=== PATIENT | female | born 1945 | race Caucasian/White ===

== ENCOUNTER 2016-07-06 12:05 | Observation (INO) ==
--- NOTE | 2016-07-06 12:07 | Emergency Department Note ---
Disposition Clinical Impression: Altered mental status, Anemia, Influenza A, Ataxia, Hypoxemia, Thrombocytopenia , Frail elderly Disposition: Admitted As Inpatient Referrals: NO,PCP [Non-Partnered Physician] - Forms: ED Satisfaction Letter General Adult HPI - General Chief complaint: ED Altered Mental Status Stated complaint: cough, AMS Time Seen by Provider: 07/06/16 12:07 - History of Present Illness HPI Narrative: 71-year-old female reports to the emergency department complaining of confusion. She was brought in by her relatives who live with her. This all started last evening she was becoming increasingly confused and this persisted throughout today. There is no history of fall or injury. The patient denies any chest pain she has been somewhat short of breath and had a cough. The patient has no history of COPD asthma CHF CAD DVT or PE. She does not usually require oxygen. There is no history of abdominal pain vomiting or diarrhea. No convulsions or difficulty moving the arms or legs independently. There is no history of coughing up blood. No history of leg swelling or pain. There is no history of dysarthria. The family reports the patient was asking inappropriate questions and was not oriented to place. She has had a cough for the last few days. The patient also complains of a headache, there is no history of neck stiffness or rash. - Related Data Home Medications Medication Instructions Recorded Confirmed Alprazolam [Xanax 0.5 MG Tablet] 0.5 mg PO BID 11/06/15 07/06/16 Amlodipine [Norvasc] 5 mg PO DAILY 11/06/15 07/06/16 Atorvastatin Calcium [Lipitor] 20 mg PO QPM 11/06/15 07/06/16 Diclofenac Potassium 50 mg PO BID 11/06/15 07/06/16 Donepezil [Aricept] 10 mg PO HS 11/06/15 07/06/16 Gabapentin [Neurontin] 300 mg PO TID 11/06/15 07/06/16 Levothyroxine [Synthroid] 25 mcg PO QAM 11/06/15 07/06/16 Metoprolol [Lopressor] 50 mg PO BID 11/06/15 07/06/16 Nortriptyline [Pamelor] 10 mg PO HS 11/06/15 07/06/16 Pantoprazole Sodium [Protonix] 40 mg PO DAILY 06/13/16 02/11/17 Sertraline [Zoloft] 150 mg PO DAILY 11/06/15 07/06/16 Oxycodone HCl [Oxycontin] 20 mg PO QID PRN 07/06/16 07/06/16 Allergies Allergy/AdvReac Type Severity Reaction Status Date / Time citalopram [From Celexa] Allergy Hallucinati Verified 03/05/16 10:00 ng Hydromorphone [From Dilaudid] Allergy Hallucinati Verified 03/05/16 10:00 ng Oxycodone [From OxyContin] Allergy Hallucinati Verified 03/05/16 10:00 ng Penicillins Allergy Hives Verified 03/05/16 10:00 All systems ED: reviewed and negative except as stated. (The patient gives a reasonable review of systems, the family augments the ROS and history.) Limitations: ROS unobtainable due to patients medical condition Past Medical History - Past Medical History Medical history: Reports: arthritis, hyperlipidemia, hypertension, thyroid disease, other Surgical history: Reports: , hip replacement, hysterectomy, knee replacement, orthopedic, other, other Psychiatric history: Reports: anxiety, depression - Social History Smoking Status: Never smoker Smokeless Tobacco Status: No Alcohol use: Reports: none Drug use: Reports: none Physical Exam - General Limitations: age General appearance: alert, in no apparent distress - Head Head exam: atraumatic, normocephalic, normal inspection - Eye Eye exam: Present: normal appearance, PERRL, EOMI. Absent: scleral icterus, conjunctival injection, miosis, mydriasis - ENT ENT exam: normal exam, normal oropharynx, mucous membranes moist, TM's normal bilaterally, normal external ear exam - Neck Neck exam: Present: normal inspection, full ROM, trachea midline. Absent: meningismus - Chest Chest inspection: Present: symmetric chest wall rise. Absent: tenderness - Respiratory Respiratory exam: Present: prolonged expiratory phase. Absent: respiratory distress, accessory muscle use - Cardiovascular Cardiovascular exam: Present: normal rhythm, tachycardia - Abdominal Exam Abdominal exam: Present: soft, Non-Tender, normal bowel sounds. Absent: tenderness, distention, guarding, rebound, rigidity, pulsatile mass - Extremities Exam Extremities exam: Present: normal inspection, full ROM, normal capillary refill. Absent: tenderness, pedal edema, joint swelling, calf tenderness - Expanded Lower Extremity Exam Neurovascular/Tendon exam: Absent: motor deficit, sensory deficit, tendon deficit, extremity cold to touch - Back Exam Back exam: Present: normal inspection, full ROM. Absent: tenderness, CVA tenderness (R), CVA tenderness (L), vertebral tenderness - Neurological Exam Neurological exam: Present: alert, CN II-XII intact, other (The patient is generally alert and cooperative and answers questions properly and follows commands well. The family reports she was not oriented to place.). Absent: motor sensory deficit - Psychiatric Psychiatric exam: Present: normal affect, normal mood - Skin Skin exam: Present: warm, dry, intact, normal color. Absent: rash, erythema, pallor, mottled Course Vital Signs Temperature 100.1 F H 07/06/16 12:07 Pulse Rate 119 07/06/16 12:07 Respiratory Rate 18 07/06/16 12:07 Blood Pressure 129/92 07/06/16 12:07 O2 Sat by Pulse Oximetry 90 L 07/06/16 12:07 Temperature 100.1 F H 07/06/16 12:07 Pulse Rate 84 07/06/16 16:45 Respiratory Rate 18 07/06/16 16:45 Blood Pressure 105/65 07/06/16 16:45 O2 Sat by Pulse Oximetry 94 L 07/06/16 16:45 Oxygen Delivery Oxygen Delivery Nasal Cannula Medical Decision Making - [facility] Narrative Medical decision making narrative: Patient was monitored in the emergency department, her family reported she had been significantly confused. They state that she is so weak now that she cannot walk. The patient's testing reveals an element of anemia which is likely chronic, her influenza A test is positive. The patient was monitored in the emergency department and was utilizing oxygen with reasonable saturations. We removed her oxygen and her O2 sats went to 89%. The patient does not usually require oxygen. Based on the patient's elderly state, hypoxemia, influenza a positive status, ataxia, and reports of confusion, I thought it would be appropriate to observe the patient and the hospital. I discussed the case with the hospitalist on-call. - Lab Data Lab results reviewed: Yes I reviewed the patient's lab results. Result diagrams: 07/06/16 12:39 07/06/16 12:39 Lab Results 07/06/16 07/06/16 07/06/16 Range/Units 12:39 12:39 12:39 WBC 6.3 (4.3-11.1) K/mcL RBC 4.00 (3.82-4.97) M/mcL Hgb 10.8 L (11.5-15.4) g/dL Hct 34.2 L (35.3-44.9) % MCV 85.5 (83.0-100.0) fL MCH 27.0 L (28.0-33.3) pg MCHC 31.6 (31.6-35.5) g/dL RDW 14.7 H (11.5-14.5) % Plt Count 125 L (140-400) K/mcL MPV 10.2 (9.4-12.4) fL Immature Gran % 0.3 (0-4) % Seg Neutrophils % 75.7 % Lymphocytes % 15.0 % Monocytes % 7.8 % Eosinophils % 1.0 % Basophils % 0.2 % Neutrophils # 4.7 (1.6-8.9) K/mcL Lymphocytes # 0.9 (0.6-4.6) K/mcL Monocytes # 0.5 (0.0-1.3) K/mcL Eosinophils # 0.1 (0.0-0.6) K/mcL Basophils # 0.0 (0.0-0.2) K/mcL PT 11.9 (9.4-12.1) Seconds INR 1.1 APTT 31.4 (26.0-36.0) Seconds Sodium 139 (136-145) mEq/L Potassium 3.9 (3.5-4.5) mEq/L Chloride 105 (98-109) mEq/L Carbon Dioxide 25 (19-29) mEq/L BUN 12 (7-20) mg/dL Creatinine 0.77 (0.57-1.11) mg/dL Est GFR ( Amer) > 60 (> 60) Est GFR (Non-Af Amer) > 60 (> 60) BUN/Creatinine Ratio 16 (6-26) Glucose 114 H (70-99) mg/dL POC Glucose (58-89) Calculated Osmolality 289 (280-300) Lactic Acid (0.5-2.2) mmol/L Calcium 9.1 (8.6-10.8) mg/dL Total Bilirubin 0.4 (0.2-1.2) mg/dL Direct Bilirubin 0.2 (0.0-0.5) mg/dL Indirect Bilirubin 0.2 (0.0-1.2) mg/dL AST 20 (5-34) Units/L ALT 13 (0-55) Units/L Alkaline Phosphatase 61 (38-126) Units/L Ammonia (18-72) mcmol/L Troponin I (0-0.03) ng/mL C-Reactive Protein 32 H (Less than 5) mg/L Serum Total Protein 6.7 (6.0-8.3) g/dL Albumin 3.6 (3.5-5.0) g/dL Globulin 3.1 (2.4-3.5) g/dL Albumin/Globulin Ratio 1.2 (1.1-2.2) TSH 1.762 (0.350-4.840) mcIU/mL Urine Color (Yellow) Urine Clarity (Clear) Urine pH (5.0-8.0) pH Units Ur Specific Fults (1.010-1.025) Urine Protein (Neg-Trace) mg/dL Urine Glucose (UA) (Normal) mg/dL Urine Ketones (Negative) mg/dL Urine Blood (Negative) Urine Nitrite (Negative) Urine Bilirubin (Negative) Urine Urobilinogen (Normal) mg/dL Ur Leukocyte Esterase (Negative) Ur Culture Indicated? (NO) Salicylates < 5.0 L (15-30) mg/dL Urine Opiates Screen (Anzcsb=061) ng/mL Ur Barbiturates Screen (Vwrtwh=166) ng/mL Ur Phencyclidine Scrn (Cutoff=25) ng/mL Ur Amphetamines Screen (Vhqjhv=0224) ng/mL U Benzodiazepines Scrn (Habshh=523) ng/mL Urine Cocaine Screen (Cutoff= 300) ng/mL U Marijuana (THC) Screen (Cutoff = 50) ng/mL Ethyl Alcohol < 10 (0-10) mg/dL 07/06/16 07/06/16 07/06/16 Range/Units 12:39 12:39 12:39 WBC (4.3-11.1) K/mcL RBC (3.82-4.97) M/mcL Hgb (11.5-15.4) g/dL Hct (35.3-44.9) % MCV (83.0-100.0) fL MCH (28.0-33.3) pg MCHC (31.6-35.5) g/dL RDW (11.5-14.5) % Plt Count (140-400) K/mcL MPV (9.4-12.4) fL Immature Gran % (0-4) % Seg Neutrophils % % Lymphocytes % % Monocytes % % Eosinophils % % Basophils % % Neutrophils # (1.6-8.9) K/mcL Lymphocytes # (0.6-4.6) K/mcL Monocytes # (0.0-1.3) K/mcL Eosinophils # (0.0-0.6) K/mcL Basophils # (0.0-0.2) K/mcL PT (9.4-12.1) Seconds INR APTT (26.0-36.0) Seconds Sodium (136-145) mEq/L Potassium (3.5-4.5) mEq/L Chloride (98-109) mEq/L Carbon Dioxide (19-29) mEq/L BUN (7-20) mg/dL Creatinine (0.57-1.11) mg/dL Est GFR ( Amer) (> 60) Est GFR (Non-Af Amer) (> 60) BUN/Creatinine Ratio (6-26) Glucose (70-99) mg/dL POC Glucose (58-89) Calculated Osmolality (280-300) Lactic Acid 1.0 (0.5-2.2) mmol/L Calcium (8.6-10.8) mg/dL Total Bilirubin (0.2-1.2) mg/dL Direct Bilirubin (0.0-0.5) mg/dL Indirect Bilirubin (0.0-1.2) mg/dL AST (5-34) Units/L ALT (0-55) Units/L Alkaline Phosphatase (38-126) Units/L Ammonia 34 (18-72) mcmol/L Troponin I 0.00 (0-0.03) ng/mL C-Reactive Protein (Less than 5) mg/L Serum Total Protein (6.0-8.3) g/dL Albumin (3.5-5.0) g/dL Globulin (2.4-3.5) g/dL Albumin/Globulin Ratio (1.1-2.2) TSH (0.350-4.840) mcIU/mL Urine Color (Yellow) Urine Clarity (Clear) Urine pH (5.0-8.0) pH Units Ur Specific Fults (1.010-1.025) Urine Protein (Neg-Trace) mg/dL Urine Glucose (UA) (Normal) mg/dL Urine Ketones (Negative) mg/dL Urine Blood (Negative) Urine Nitrite (Negative) Urine Bilirubin (Negative) Urine Urobilinogen (Normal) mg/dL Ur Leukocyte Esterase (Negative) Ur Culture Indicated? (NO) Salicylates (15-30) mg/dL Urine Opiates Screen (Gtaxip=101) ng/mL Ur Barbiturates Screen (Azncrn=365) ng/mL Ur Phencyclidine Scrn (Cutoff=25) ng/mL Ur Amphetamines Screen (Xpfktk=1901) ng/mL U Benzodiazepines Scrn (Aapstn=071) ng/mL Urine Cocaine Screen (Cutoff= 300) ng/mL U Marijuana (THC) Screen (Cutoff = 50) ng/mL Ethyl Alcohol (0-10) mg/dL 07/06/16 07/06/16 07/06/16 Range/Units 13:10 13:10 13:16 WBC (4.3-11.1) K/mcL RBC (3.82-4.97) M/mcL Hgb (11.5-15.4) g/dL Hct (35.3-44.9) % MCV (83.0-100.0) fL MCH (28.0-33.3) pg MCHC (31.6-35.5) g/dL RDW (11.5-14.5) % Plt Count (140-400) K/mcL MPV (9.4-12.4) fL Immature Gran % (0-4) % Seg Neutrophils % % Lymphocytes % % Monocytes % % Eosinophils % % Basophils % % Neutrophils # (1.6-8.9) K/mcL Lymphocytes # (0.6-4.6) K/mcL Monocytes # (0.0-1.3) K/mcL Eosinophils # (0.0-0.6) K/mcL Basophils # (0.0-0.2) K/mcL PT (9.4-12.1) Seconds INR APTT (26.0-36.0) Seconds Sodium (136-145) mEq/L Potassium (3.5-4.5) mEq/L Chloride (98-109) mEq/L Carbon Dioxide (19-29) mEq/L BUN (7-20) mg/dL Creatinine (0.57-1.11) mg/dL Est GFR ( Amer) (> 60) Est GFR (Non-Af Amer) (> 60) BUN/Creatinine Ratio (6-26) Glucose (70-99) mg/dL POC Glucose 102 H (58-89) Calculated Osmolality (280-300) Lactic Acid (0.5-2.2) mmol/L Calcium (8.6-10.8) mg/dL Total Bilirubin (0.2-1.2) mg/dL Direct Bilirubin (0.0-0.5) mg/dL Indirect Bilirubin (0.0-1.2) mg/dL AST (5-34) Units/L ALT (0-55) Units/L Alkaline Phosphatase (38-126) Units/L Ammonia (18-72) mcmol/L Troponin I (0-0.03) ng/mL C-Reactive Protein (Less than 5) mg/L Serum Total Protein (6.0-8.3) g/dL Albumin (3.5-5.0) g/dL Globulin (2.4-3.5) g/dL Albumin/Globulin Ratio (1.1-2.2) TSH (0.350-4.840) mcIU/mL Urine Color Yellow (Yellow) Urine Clarity Clear (Clear) Urine pH 5.5 (5.0-8.0) pH Units Ur Specific Fults 1.019 (1.010-1.025) Urine Protein Negative (Neg-Trace) mg/dL Urine Glucose (UA) Normal (Normal) mg/dL Urine Ketones Negative (Negative) mg/dL Urine Blood Negative (Negative) Urine Nitrite Negative (Negative) Urine Bilirubin Negative (Negative) Urine Urobilinogen Normal (Normal) mg/dL Ur Leukocyte Esterase Negative (Negative) Ur Culture Indicated? NO (NO) Salicylates (15-30) mg/dL Urine Opiates Screen Positive H (Ofbsth=269) ng/mL Ur Barbiturates Screen Negative (Uhxfox=058) ng/mL Ur Phencyclidine Scrn Negative (Cutoff=25) ng/mL Ur Amphetamines Screen Negative (Qfhgex=4805) ng/mL U Benzodiazepines Scrn Positive H (Ujmqeb=164) ng/mL Urine Cocaine Screen Negative (Cutoff= 300) ng/mL U Marijuana (THC) Screen Negative (Cutoff = 50) ng/mL Ethyl Alcohol (0-10) mg/dL - Radiology Data Radiology results reviewed: Yes I reviewed the patient's radiology results.
[2016-07-06] MEDS ORDERED: 0.9 % Sodium Chloride 1,000 ML IVC ONE (12:09)
[2016-07-06] MEDS ORDERED: 0.9 % Sodium Chloride 1,000 ML IVC SCH (12:30)
[2016-07-06 12:51] LABS: Basophils % 0.2 %; Eosinophils # 0.1 K/mcL (0.0-0.6); Hematocrit 34.2 % (35.3-44.9); Hemoglobin 10.8 g/dL (11.5-15.4); Immature Granulocytes % 0.3 % (0-4); Lymphocytes # 0.9 K/mcL (0.6-4.6); Mean Corpuscular HGB Conc 31.6 g/dL (31.6-35.5); Mean Corpuscular Volume 85.5 fL (83.0-100.0); Mean Platelet Volume 10.2 fL (9.4-12.4); Monocytes # 0.5 K/mcL (0.0-1.3); Monocytes % 7.8 %; Neutrophils # 4.7 K/mcL (1.6-8.9); Platelet Count 125 K/mcL (140-400); Red Cell Distribution Width 14.7 % (11.5-14.5); Segmented Neutrophils % 75.7 %
[2016-07-06 12:56] LABS: INR 1.1; Prothrombin Time 11.9 Seconds (9.4-12.1)
[2016-07-06 12:59] LABS: Activated Partial Thrombo Time 31.4 Seconds (26.0-36.0)
[2016-07-06 13:10] LABS: Alanine Aminotransferase 13 Units/L (0-55); Albumin 3.6 g/dL (3.5-5.0); Albumin/Globulin Ratio 1.2 (1.1-2.2); Alkaline Phosphatase 61 Units/L (38-126); Aspartate Amino Transferase 20 Units/L (5-34); BUN/Creatinine Ratio 16 (6-26); Bilirubin,Direct 0.2 mg/dL (0.0-0.5); Bilirubin,Indirect 0.2 mg/dL (0.0-1.2); Bilirubin,Total 0.4 mg/dL (0.2-1.2); Blood Urea Nitrogen 12 mg/dL (7-20); Calcium 9.1 mg/dL (8.6-10.8); Carbon Dioxide 25 mEq/L (19-29); Chloride 105 mEq/L (98-109); Globulin 3.1 g/dL (2.4-3.5); Glucose 114 mg/dL (70-99); Osmolality,Calculated 289 (280-300); Potassium 3.9 mEq/L (3.5-4.5); Sodium 139 mEq/L (136-145); Total Protein 6.7 g/dL (6.0-8.3); eGFR For African Americans > 60 (> 60); eGFR For Non-African Americans > 60 (> 60)
[2016-07-06 13:11] LABS: Ethanol < 10 mg/dL (0-10); Salicylate < 5.0 mg/dL (15-30)
[2016-07-06 13:30] LABS: Thyroid Stimulating Hormone 1.762 mcIU/mL (0.350-4.840)
[2016-07-06 13:39] LABS: Bilirubin,Urine Negative (Negative); Blood,Urine Negative (Negative); Clarity,Urine Clear (Clear); Color,Urine Yellow (Yellow); Glucose,Urine (UA) Normal (Normal); Ketones,Urine Negative (Negative); Leukocyte Esterase,Urine Negative (Negative); Nitrite,Urine Negative (Negative); PH,Urine 5.5 pH Units (5.0-8.0); Protein,Urine Negative (Neg-Trace); Specific Gravity,Urine 1.019 (1.010-1.025); Urobilinogen,Urine Normal (Normal)
[2016-07-06] MEDS ORDERED: Ipratropium/Albuterol Neb 3 ML IH ONE (14:17)
[2016-07-06 15:29] LABS: Amphetamine Screen,Urine Negative ng/mL (Cutoff=1000); Barbiturate Screen,Urine Negative ng/mL (Cutoff=200); Benzodiazepines Screen,Urine Positive ng/mL (Cutoff=200); Cannabinoid Screen,Urine Negative ng/mL (Cutoff = 50); Cocaine Screen,Urine Negative ng/mL (Cutoff= 300); Opiate Screen,Urine Positive ng/mL (Cutoff=300); Phencyclidine Screen,Urine Negative ng/mL (Cutoff=25)
[2016-07-06 15:33] LABS: C-Reactive Protein 32 mg/L (Less than 5)
[2016-07-06] MEDS ORDERED: Acetaminophen 325 MG TABLET PO ONE (19:52)
[2016-07-06] MEDS ORDERED: Naloxone 0.4 MG/ML INJ IVP PRN (20:08)
[2016-07-06] MEDS ORDERED: Ondansetron 4 MG/2 ML VIAL IVP PRN (20:08)
--- NOTE | 2016-07-06 20:28 | Internal Med History&Physical ---
Date of Encounter: 07/06/16 Time of Encounter: 20:20 Assessment and Plan (1) Influenza A Current visit: Yes Status: Acute 1 patient has been experiencing cough weakness headaches and general malaise for 2 days pain family has noticed increased confusion, and odd behavior. She was brought to the ER was hypoxic on presentation. After workup it was found that she was positive for influenza A. We will continue with oxygen support maintain SPO2 greater than 92%-and attempt to wean oxygen to room air 2 we will continue with Tamiflu 3 albuterol treatments (2) Hypoxemia Current visit: Yes Status: Acute 1 patient was 89% on room air she does have some wheezing her x-ray was clear positive for influenza. We will continue with oxygen support as well as albuterol. We will maintain a strict 2 g of 90% and wean oxygen to room air (3) Altered mental status Current visit: Yes Status: Acute 1 patient experiencing some delirium, CT of head was negative she did have some hypoxia, which could have contributed to her confusion. Influenza swab was positive. We will continue with oxygen to maintain a CO2 greater than 92% will continue with Tamiflu 2 monitor neuro status Qualifiers: Altered mental status type: delirium Qualified Code(s): R41.0 - Disorientation, unspecified (4) DVT prophylaxis Current visit: Yes Status: Acute 1 encouraged patient early ambulation Internal Medicine - H&P: HPI Chief complaint: Confusion, cough Admitted From: Emergency Dept Plans for Post Hospital Care: Home History of present illness: Ms. Peters is a 71 year old female with past history of hyperlipidemia hypertension and thyroid disease and VADIM. According to family patient has been experiencing cough for the past 2 days as well as headaches general malaise wheezing, weakness and increased confusion. She denies any chest pain shortness of breath nausea vomiting or diarrhea fever or chills. She has had sick exposures from other family members have been experiencing upper respiratory symptoms. Her family brought her in to the ER for evaluation after patient was displaying odd behavior, was not aware of her surroundings, and was "talking out of her head" According to the ER notes patient was not aware of her surroundings her oxygen saturation was 89% on room air chest x-ray was negative her CT of head was negative for any intracranial abnormalities lab work was unremarkable no leukocytosis CRP was 32 . Toxicology screen was positive for opiates and benzos , patient is prescribed. Urine was negative for any UTI influenza swab was positive for influenza A. Patient was placed on oxygen given breathing treatments Tylenol and Tamiflu. She has been admitted for further workup and evaluation. At present time patient is alert oriented appropriate following simple commands. Family feels she is back to baseline neurologically patient complains of headache and fatigue. Present time her SPO2 is 97% on 2 L vitals are all stable I reviewed this case with Dr. Ritter who agrees with plan Past Med Surg Social Fam HX - Past Medical History Medical history: arthritis, hyperlipidemia, hypertension, thyroid disease, other Psychiatric history: anxiety, depression - Past Surgical History Surgical History: , hip replacement, hysterectomy, knee replacement, orthopedic, other, other - Social History Smoking Status: Never smoker Smokeless Tobacco Status: No Alcohol use: none Drug use: none - Additional Family History Additional family history: Noncontributory Internal Medicine - H&P: Meds Alprazolam [Xanax 0.5 MG Tablet] 0.5 mg PO BID 11/06/15 [History] Amlodipine [Norvasc] 5 mg PO DAILY 11/06/15 [History] Atorvastatin Calcium [Lipitor] 20 mg PO QPM 11/06/15 [History] Diclofenac Potassium 50 mg PO BID 11/06/15 [History] Donepezil [Aricept] 10 mg PO HS 11/06/15 [History] Gabapentin [Neurontin] 300 mg PO TID 11/06/15 [History] Levothyroxine [Synthroid] 25 mcg PO QAM 11/06/15 [History] Metoprolol [Lopressor] 50 mg PO BID 11/06/15 [History] Nortriptyline [Pamelor] 10 mg PO HS 11/06/15 [History] Pantoprazole Sodium [Protonix] 40 mg PO DAILY 11/06/15 [History] Sertraline [Zoloft] 150 mg PO DAILY 11/06/15 [History] Oxycodone HCl [Oxycontin] 20 mg PO QID PRN 07/06/16 [History] Allergies citalopram [From Celexa] Allergy (Verified 03/05/16 10:00) Hallucinating Hydromorphone [From Dilaudid] Allergy (Verified 03/05/16 10:00) Hallucinating Oxycodone [From OxyContin] Allergy (Verified 03/05/16 10:00) Hallucinating Penicillins Allergy (Verified 03/05/16 10:00) Hives All Systems PM: A 10-system review of systems was performed and is negative for pertinent findings except as documented above in the HPI. - Constitutional Constitutional: fatigue, malaise, weakness - Cardiovascular Cardiovascular ROS IM: no chest pain, no diaphoresis, no dyspnea, no lightheadedness, no palpitations, no syncope - Respiratory Respiratory: cough, wheezing - Gastrointestinal Gastrointestinal: no abdominal pain, no diarrhea, no hematemesis, no hematochezia, no melena, no nausea, no vomiting - Genitourinary Genitourinary: no change in urinary stream, no dysuria, no flank pain, no hematuria - Musculoskeletal Musculoskeletal ROS IM: no numbness, no tingling - Neurological Neurological ROS: behavioral changes, confusion, weakness - Constitutional Vitals: Temp Pulse Resp BP Pulse Ox 100.1 F H 92 18 121/70 94 L 07/06/16 12:07 07/06/16 19:00 07/06/16 20:12 07/06/16 20:12 07/06/16 19:00 General appearance: Present: A&O X 3, answers questions appropriately - Head Head exam: Present: atraumatic, normocephalic - Eye Eye exam: Present: PERRL, conjuntiva pink, sclera anicteric Pupils: Present: PERRL - Neck Neck exam general surgery: Present: supple, trachea midline. Absent: lymphadenopathy - Respiratory Respiratory exam: Present: wheezes. Absent: accessory muscle use, rales, rhonchi - Cardiovascular Cardiovascular exam: Present: RRR, +S1, +S2. Absent: diastolic murmur, gallop, rubs, systolic murmur - GI/Abdominal GI/Abdominal exam: Present: normal bowel sounds, soft, no peritoneal signs. Absent: distended, tenderness - Extremities Exam Extremities exam: Present: warm, radial pulses palpable and symetrical. Absent : calf tenderness, cyanotic, pedal edema - Neurological Exam Neurological exam: Present: CN II-XII intact, oriented X3, no focal deficits. Absent: pronater drift, facial droop, speech deficit - Skin Skin exam: Present: dry, intact Internal Med - H&P Results - Labs CBC & Chem 7: 07/06/16 12:39 07/06/16 12:39 - Diagnostic Studies Chest x-ray Additional comments: Chest x-ray with no acute process per radiology read CT scan - head Additional comments: No intracranial abnormalities per radiology read - VTE Reasons for not Prescribing Prophylaxis: Treatment not Indicated - Low risk for VTE
[2016-07-06] MEDS: Albuterol 2.5 MG/3 ML NEBULIZER IH SCH (21:01)
[2016-07-06] MEDS: Gabapentin 300 MG CAPSULE PO SCH (22:14)
[2016-07-06] MEDS: ALPRAZolam 0.5 MG TABLET PO SCH (22:17)
[2016-07-06] MEDS: 0.9 % Sodium Chloride 1,000 ML IVC SCH (22:20)
--- NOTE | 2016-07-06 22:42 | Event Note ---
Date of Encounter: 07/06/16 Time of Encounter: 22:40 Patient seen and examined with nurse practitioner. Patient resents with 48 hours of flulike symptoms. She has been having sore throat bony aches, headache confusion fevers and productive cough of yellowish sputum. Multiple sick contacts at home. Viral Influenza positive. Will start Tamiflu. She is also hypoxic in the emergency room with increased sputum production, so I will treat with azithromycin for acute bronchitis. There is no pneumonia on the chest x-ray. However repeat to you x-ray tomorrow after hydration. Will hydrate the patient. Physical therapy will see the patient. She has headache and some confusion however she was alert and oriented times 3 on my interview after his fluid resuscitation. Negative meningeal signs. Check for Mycoplasma and check sputum culture
[2016-07-06] MEDS ORDERED: Azithromycin 500 MG in D5% in Water 250 ML IVPB SCH (23:00)
[2016-07-07] MEDS: Azithromycin 500 MG in D5% in Water 250 ML IVPB SCH ×2 (00:26→23:30)
[2016-07-07] MEDS: *HR* Heparin 5,000 UNIT/ML VIAL SQ SCH ×4 (00:26→23:29)
[2016-07-07] MEDS: Albuterol 2.5 MG/3 ML NEBULIZER IH SCH ×4 (04:30→23:00)
[2016-07-07 06:23] LABS: Eosinophils # 0.1 K/mcL (0.0-0.6); Eosinophils % 1.8 %; Hematocrit 33.1 % (35.3-44.9); Hemoglobin 10.3 g/dL (11.5-15.4); Immature Granulocytes % 0.6 % (0-4); Lymphocytes # 1.2 K/mcL (0.6-4.6); Lymphocytes % 34.8 %; Mean Corpuscular HGB Conc 31.1 g/dL (31.6-35.5); Mean Corpuscular Hemoglobin 27.2 pg (28.0-33.3); Mean Corpuscular Volume 87.3 fL (83.0-100.0); Monocytes # 0.2 K/mcL (0.0-1.3); Neutrophils # 1.9 K/mcL (1.6-8.9); Platelet Count 128 K/mcL (140-400); Red Blood Count 3.79 M/mcL (3.82-4.97); Segmented Neutrophils % 55.8 %
[2016-07-07 06:30] LABS: BUN/Creatinine Ratio 12 (6-26); Blood Urea Nitrogen 8 mg/dL (7-20); Carbon Dioxide 27 mEq/L (19-29); Chloride 108 mEq/L (98-109); Glucose 103 mg/dL (70-99); Magnesium 1.9 mg/dL (1.6-2.6); Osmolality,Calculated 295 (280-300); Potassium 3.6 mEq/L (3.5-4.5); Sodium 143 mEq/L (136-145); eGFR For African Americans > 60 (> 60); eGFR For Non-African Americans > 60 (> 60)
[2016-07-07] MEDS: Acetaminophen 325 MG TABLET PO PRN (09:13)
[2016-07-07] MEDS: ALPRAZolam 0.5 MG TABLET PO SCH ×2 (09:14→20:37)
[2016-07-07] MEDS: Gabapentin 300 MG CAPSULE PO SCH ×3 (09:15→20:37)
[2016-07-07] MEDS: Levothyroxine 25 MCG TABLET PO SCH (09:15)
[2016-07-07] MEDS: amLODIPine 5 MG TABLET PO SCH (09:15)
[2016-07-07] MEDS: 0.9 % Sodium Chloride 1,000 ML IVC SCH ×2 (10:39→23:29)
--- NOTE | 2016-07-07 14:02 | Internal Med Progress Note ---
Date of Encounter: 07/07/16 Time of Encounter: 14:00 - Assessment and plan (1) Influenza A Current Visit: Yes Status: Acute Assessment and plan: With atypical symptoms of influenza for the last 48 hours. Patient was confused. Family noted some kind of odd behavior. Noted that patient has influenza A positive. Presently on Tamiflu. She is on azithromycin for possible superinfection/coinfection (2) Altered mental status Current Visit: Yes Status: Acute Assessment and plan: Completely resolved and that is likely secondary to influenza. Qualifiers: Altered mental status type: delirium Qualified Code(s): R41.0 - Disorientation, unspecified (3) Hypoxemia Current Visit: Yes Status: Acute Assessment and plan: Saturating well with 2 L of oxygen. Will give a try off oxygen (4) DVT prophylaxis Current Visit: Yes Status: Acute Assessment and plan: Heparin. Medical decision making: This patient has a [id number] risk of worsening respiratory failure in spite of being on appropriate treatment - Subjective Interval history: Seen and examined. Chart reviewed. Patient has occasional shortness of breath. She is still coughing. - Constitutional Vitals: Temp Pulse Resp BP Pulse Ox 97.9 F 65 15 114/72 94 L 07/07/16 11:06 07/07/16 11:06 07/07/16 11:06 07/07/16 11:06 07/07/16 11:06 General appearance: Present: A&O X 3, answers questions appropriately - Head Head exam: Present: atraumatic, normocephalic - Eye Eye exam: Present: PERRL, conjuntiva pink, sclera anicteric Pupils: Present: PERRL - Neck Neck exam general surgery: Present: supple, trachea midline. Absent: lymphadenopathy - Respiratory Respiratory exam: Present: CTAB. Absent: accessory muscle use, rales, rhonchi, wheezes - Cardiovascular Cardiovascular exam: Present: RRR, +S1, +S2. Absent: diastolic murmur, gallop, rubs, systolic murmur - GI/Abdominal GI/Abdominal exam: Present: normal bowel sounds, soft, no peritoneal signs. Absent: distended, tenderness - Extremities Exam Extremities exam: Present: warm, radial pulses palpable and symetrical. Absent : calf tenderness, cyanotic, pedal edema - Neurological Exam Neurological exam: Present: CN II-XII intact, oriented X3, no focal deficits. Absent: pronater drift, facial droop, speech deficit - Skin Skin exam: Present: dry, intact Internal Medicine: Result - Labs CBC & Chem 7: 07/07/16 05:14 07/07/16 05:14 Labs: Short CBC 07/07/16 Range/Units 05:14 WBC 3.4 L (4.3-11.1) K/mcL Hgb 10.3 L (11.5-15.4) g/dL Hct 33.1 L (35.3-44.9) % Plt Count 128 L (140-400) K/mcL Neutrophils # 1.9 (1.6-8.9) K/mcL BMP 07/07/16 05:14 Sodium 143 Potassium 3.6 Chloride 108 Carbon Dioxide 27 BUN 8 Creatinine 0.68 Glucose 103 H Calcium 9.0 - ABG Interpretation ABG results: PT/INR, D-dimer PT 11.9 Seconds (9.4-12.1) 07/06/16 12:39 - Impressions Impressions Chest X-Ray 07/07/16 08:00 IMPRESSION: No evidence of acute cardiopulmonary disease. D/ / Jm Galvan MD / Jm Galvan MD Interpreting Provider: Jm Galvan MD - VTE Reasons for not Prescribing Prophylaxis: Treatment not Indicated - Low risk for VTE Consult Discharge Plan - Plan Referrals: Joe Bethea MD [Primary Care Provider] -
--- NOTE | 2016-07-07 14:09 | Electrocardiograph Report ---
[place] [id number] Test Date: 2016-07-06 Pat Name: Roxana Peters Department: 103 Room: 2N4 Gender: F Net Software Engineer: : 1945 Requested By: Bonilla Pang Order Number: [id number] Reading MD: Sneha Borrego Measurements Intervals [place] Rate: 108 P: -6 IL: 177 QRS: -9 QRSD: 84 T: 15 QT: 323 QTc: 386 Interpretive Statements SINUS TACHYCARDIA ABNORMAL RHYTHM ECG Electronically Signed On 07-07-2016 14:07:28 EST by Sneha Borrego
[2016-07-08] MEDS: Albuterol 2.5 MG/3 ML NEBULIZER IH SCH ×2 (04:53→10:56)
[2016-07-08] MEDS: *HR* Heparin 5,000 UNIT/ML VIAL SQ SCH (06:14)
[2016-07-08 06:21] LABS: Eosinophils # 0.1 K/mcL (0.0-0.6); Eosinophils % 2.2 %; Hematocrit 36.9 % (35.3-44.9); Immature Granulocytes % 0.6 % (0-4); Lymphocytes # 1.1 K/mcL (0.6-4.6); Lymphocytes % 29.5 %; Mean Corpuscular HGB Conc 29.8 g/dL (31.6-35.5); Mean Corpuscular Hemoglobin 26.1 pg (28.0-33.3); Mean Corpuscular Volume 87.4 fL (83.0-100.0); Monocytes # 0.3 K/mcL (0.0-1.3); Monocytes % 9.4 %; Neutrophils # 2.1 K/mcL (1.6-8.9); Platelet Count 164 K/mcL (140-400); Red Blood Count 4.22 M/mcL (3.82-4.97); Red Cell Distribution Width 14.9 % (11.5-14.5); Segmented Neutrophils % 58.3 %
[2016-07-08 06:42] VITALS: BP 121/76
[2016-07-08 06:46] LABS: Alanine Aminotransferase 12 Units/L (0-55); Albumin 3.4 g/dL (3.5-5.0); Alkaline Phosphatase 48 Units/L (38-126); Aspartate Amino Transferase 19 Units/L (5-34); BUN/Creatinine Ratio 9 (6-26); Bilirubin,Total 0.4 mg/dL (0.2-1.2); Blood Urea Nitrogen 6 mg/dL (7-20); Calcium 9.3 mg/dL (8.6-10.8); Carbon Dioxide 26 mEq/L (19-29); Chloride 109 mEq/L (98-109); Globulin 3.3 g/dL (2.4-3.5); Glucose 98 mg/dL (70-99); Osmolality,Calculated 294 (280-300); Potassium 3.7 mEq/L (3.5-4.5); Sodium 143 mEq/L (136-145); Total Protein 6.7 g/dL (6.0-8.3); eGFR For African Americans > 60 (> 60); eGFR For Non-African Americans > 60 (> 60)
--- NOTE | 2016-07-08 08:32 | Discharge Summary ---
<Inge Dominguez - Last Filed: 07/08/16 17:50> Date of Encounter: 07/08/16 Time of Encounter: 08:30 - Discharge Diagnosis (1) Influenza A Priority: Primary Status: Acute Comments: Patient has had 3 doses Tamiflu during admission She is overall clinically improved No longer requiring oxygen support Mental status back to baseline Will be discharged on Tamiflu x 7 doses (2) Altered mental status Priority: Secondary Status: Resolved Comments: Completely resolved and likely secondary to influenza Qualifiers: Altered mental status type: delirium Qualified Code(s): R41.0 - Disorientation, unspecified (3) Hypoxemia Priority: Secondary Status: Resolved Comments: Patient saturating well on room air at this time No longer requiring oxygen support - Discharge Medications Prescriptions: Albuterol Sulfate [Albuterol Inhaler] 2 puff IH Q4HR #1 hfa.aer.ad Oseltamivir [Tamiflu] 75 mg PO BID #7 capsule Home Medications: Alprazolam [Xanax 0.5 MG Tablet] 0.5 mg PO BID 11/06/15 [History] Amlodipine [Norvasc] 5 mg PO DAILY 11/06/15 [History] Atorvastatin Calcium [Lipitor] 20 mg PO QPM 11/06/15 [History] Diclofenac Potassium 50 mg PO BID 11/06/15 [History] Gabapentin [Neurontin] 300 mg PO TID 11/06/15 [History] Levothyroxine [Synthroid] 25 mcg PO QAM 11/06/15 [History] Metoprolol [Lopressor] 50 mg PO BID 11/06/15 [History] Nortriptyline [Pamelor] 10 mg PO HS 11/06/15 [History] Pantoprazole Sodium [Protonix] 40 mg PO DAILY 11/06/15 [History] Sertraline [Zoloft] 150 mg PO DAILY 11/06/15 [History] Oxycodone HCl [Oxycontin] 20 mg PO QID PRN 07/06/16 [History] Albuterol Sulfate [Albuterol Inhaler] 2 puff IH Q4HR #1 hfa.aer.ad 07/08/16 [Rx] Donepezil [Aricept] 10 mg PO HS tablet 07/08/16 [Rx] Oseltamivir [Tamiflu] 75 mg PO BID #7 capsule 07/08/16 [Rx] Allergies/Adverse Reactions: Allergies citalopram [From Celexa] Allergy (Verified 03/05/16 10:00) Hallucinating Hydromorphone [From Dilaudid] Allergy (Verified 03/05/16 10:00) Hallucinating Oxycodone [From OxyContin] Allergy (Verified 03/05/16 10:00) Hallucinating Penicillins Allergy (Verified 03/05/16 10:00) Hives - Notes to Outpatient Provider Patient noted to have decreased O2 sat at night. Upon further questioning, patient does have VADIM, but is non-compliant with CPAP. She stated that she does not like to wear the mask. She would benefit from outpatient CPAP device fitting/titration. Date of admission: 07/06/16 19:34 Primary care physician: Joe Bethea MD Consults: 07/06/16 21:50 Consult to Physical Therapy [CONS] Routine Comment: Evaluate, develop and implement POC Consult to Health And Wellness Manager [CONS] Routine Reason for SW Consult: discharge planning Discharging clinician: Dominic Segura Anticipated date of discharge: 07/08/16 - Patient Status Disposition: Home, Self-Care Condition: Good Functional capacity at discharge: independent ambulation Overall status at discharge: patient is progressing back to baseline - Discharge Instructions Instructions: Anemia (GEN) Follow Up With: Elle Lewis CNP [Partnered Physician] - 07/18/16 9:45 am Joe Bethea MD [Primary Care Provider] - Additional Instructions: Follow up with residency clinic 7-10 days. pt will see Dr Lewis with Internal med . Please be there 15 min early with packet you will receive in mail filled out. - Diet and Activity Activity: increase activity as tolerated Diet: advance to your usual diet Hospital course: Ms Peters is a 71 year old female who presented to the hospital 07/06/16 with cough, weakness, headaches, and malaise for 2 days. Family reported confusion and odd behavior. She was hypoxic upon presentation to the hospital. She was found to be positive for Influenza A. CT head negative for intracranial abnormality. CXR negative for acute process. Patient has been treated with 3 doses of Tamiflu. Oxygen support provided initially, and weened room air. She is saturating >94% on room air. Overall, she is greatly improved from initial presentation. She is eating, drinking, and having regular bowel movements. The altered mental status and hypoxia have resolved. She will be discharged to home with 7 doses Tamiflu 75mg po BID, and albuterol inhaler q4 hr prn. She will follow up in outpatient Residency Clinic in 7-10 days. - Time Spent with Patient Total time spent providing and/or coordinating discharge services: Less than 30 minutes - Constitutional Vitals: Temp Pulse Resp BP Pulse Ox 98.0 F 68 15 121/76 93 L 07/08/16 06:00 07/08/16 06:00 07/08/16 06:00 07/08/16 06:00 07/08/16 06:00 General appearance: Present: A&O X 3, answers questions appropriately - Head Head exam: Present: atraumatic, normal inspection - Eye Eye exam: Present: EOMI. Absent: conjunctival injection - ENT ENT exam: Present: mucous membranes moist - Neck Neck exam general surgery: Present: full ROM - Respiratory Respiratory exam: Present: wheezes (expiratory wheezes noted at lung bases, improved with cough). Absent: accessory muscle use, respiratory distress, rhonchi, tachypnea - Cardiovascular Cardiovascular exam: Present: RRR, +S1, +S2 - GI/Abdominal GI/Abdominal exam: Present: normal bowel sounds, soft. Absent: hepatomegaly, splenomegaly, tenderness - Extremities Exam Extremities exam: Present: warm. Absent: pedal edema - Neurological Exam Neurological exam: Present: CN II-XII intact, strengths equal and symetr throughout. Absent: facial droop, speech deficit - Psychiatric Psychiatric exam: Present: normal affect, normal mood - Skin Skin exam: Present: dry, warm - VTE Reasons for not Prescribing Prophylaxis: Treatment not Indicated - Low risk for VTE <Dominic Segura P - Last Filed: 07/08/16 18:12> Date of Encounter: 07/08/16 - Discharge Diagnosis (1) Influenza A Status: Acute (2) Altered mental status Status: Resolved Qualifiers: Altered mental status type: delirium Qualified Code(s): R41.0 - Disorientation, unspecified (3) Hypoxemia Status: Resolved (4) DVT prophylaxis Status: Acute Date of admission: 07/06/16 19:34 Primary care physician: Joe Bethea MD Consults: 07/06/16 21:50 Consult to Physical Therapy [CONS] Routine Comment: Evaluate, develop and implement POC Consult to Health And Wellness Manager [CONS] Routine Reason for SW Consult: discharge planning Hospital course: Ms. Peters is a 71 year old female - Time Spent with Patient Total time spent providing and/or coordinating discharge services: - Constitutional Vitals: Temp Pulse Resp BP Pulse Ox 98.0 F 68 15 121/76 93 L 07/08/16 06:00 07/08/16 06:00 07/08/16 06:00 07/08/16 06:00 07/08/16 09:00 - Attending Attestation I examined this patient and my medical decision-making was reviewed with the STAPLE LASTER/PA/Advanced Practice Nurse/Resident Physician. I agree with the documented findings, disposition and treatment plan as described except to the extent set forth below.
[2016-07-08] MEDS: amLODIPine 5 MG TABLET PO SCH (08:37)
[2016-07-08] MEDS: Acetaminophen 325 MG TABLET PO PRN (08:37)
[2016-07-08] MEDS: Levothyroxine 25 MCG TABLET PO SCH (08:38)
[2016-07-08] MEDS: Gabapentin 300 MG CAPSULE PO SCH (08:38)
[2016-07-08] MEDS: ALPRAZolam 0.5 MG TABLET PO SCH (08:38)
== END 2016-07-08 13:09 | disposition home or self-care (01) ==
LOC: EMEROO 12:05 → INTOOBSV 19:34 → 2NENU 19:34
PROVIDERS: ADMIT Internal Medicine; ATTEND Internal Medicine

== ENCOUNTER 2017-08-15 22:29 | Observation (INO) ==
[2017-08-15 23:48] LABS: Basophils % 0.3 %; Eosinophils # 0.2 K/mcL (0.0-0.6); Eosinophils % 2.8 %; Hematocrit 39.1 % (35.3-44.9); Hemoglobin 12.6 g/dL (11.5-15.4); Immature Granulocytes % 0.2 % (0-4); Lymphocytes # 1.9 K/mcL (0.6-4.6); Lymphocytes % 31.5 %; Mean Corpuscular HGB Conc 32.2 g/dL (31.6-35.5); Mean Corpuscular Hemoglobin 27.3 pg (28.0-33.3); Mean Corpuscular Volume 84.6 fL (83.0-100.0); Mean Platelet Volume 10.4 fL (9.4-12.4); Monocytes # 0.5 K/mcL (0.0-1.3); Monocytes % 7.8 %; Neutrophils # 3.4 K/mcL (1.6-8.9); Platelet Count 186 K/mcL (140-400); Red Blood Count 4.62 M/mcL (3.82-4.97); Segmented Neutrophils % 57.4 %
[2017-08-15 23:54] LABS: Prothrombin Time 10.8 Seconds (9.4-12.1)
[2017-08-15 23:57] LABS: Activated Partial Thrombo Time 29.1 Seconds (26.0-36.0)
[2017-08-16 00:10] LABS: BUN/Creatinine Ratio 17 (6-26); Blood Urea Nitrogen 13 mg/dL (8-23); Carbon Dioxide 27 mEq/L (23-29); Chloride 106 mEq/L (98-107); Glucose 98 mg/dL (70-105); Osmolality,Calculated 290 (280-300); Sodium 140 mEq/L (136-145); Troponin I < 0.03 ng/mL (< 0.04); eGFR For African Americans > 60 (> 60); eGFR For Non-African Americans > 60 (> 60)
--- NOTE | 2017-08-16 00:28 | Emergency Department Note ---
Disposition Clinical Impression: Chest pain Qualifiers: Chest pain type: other chest pain Qualified Code(s): R07.89 - Other chest pain Disposition: Admitted As Inpatient Condition: Good Chest Pain HPI - General Chief Complaint: ED Chest Pain Stated Complaint: Chest Pain/Weakness Time Seen by Provider: 08/15/17 23:53 Source: patient, family Mode of arrival: private vehicle Limitations: no limitations Vital Signs Reviewed: Yes Nursing Notes Reviewed: Yes - History of Present Illness Pt complaint: chest pain Onset (ago): hour(s) Duration: intermittent, now resolved Onset: during rest Pain Location: left chest Severity: moderate, now resolved Quality: heaviness, sharp Pain Radiation: jaw/teeth Improves with: nothing Worsens with: nothing Associated symptoms: Denies: nausea, vomiting, diaphoresis, dyspnea, sense of impending doom, syncope, palpitations, fever, cough, leg swelling Treatments prior to arrival chest pain: none - Related Data On Oral Contraceptives: No Home Medications Medication Instructions Recorded Confirmed Atorvastatin Calcium [Lipitor] 20 mg PO QPM 11/06/15 08/16/17 Diclofenac Potassium 50 mg PO BID 11/06/15 08/16/17 Gabapentin [Neurontin] 300 mg PO TID 11/06/15 08/16/17 Levothyroxine [Synthroid] 25 mcg PO QAM 11/06/15 08/16/17 Metoprolol [Lopressor] 50 mg PO BID 11/06/15 08/16/17 Nortriptyline [Pamelor] 10 mg PO HS 11/06/15 08/16/17 Pantoprazole Sodium [Protonix] 40 mg PO DAILY 11/06/15 08/16/17 Sertraline [Zoloft] 150 mg PO DAILY 11/06/15 08/16/17 amLODIPine [Norvasc] 5 mg PO DAILY 11/06/15 08/16/17 Oxycodone HCl 20 mg PO QID PRN 08/16/17 08/16/17 Previous Rx's Medication Instructions Recorded Donepezil [Aricept] 10 mg PO HS tablet 07/08/16 Allergies Allergy/AdvReac Type Severity Reaction Status Date / Time citalopram [From Celexa] Allergy Hallucinati Verified 08/15/17 22:32 ng Hydromorphone [From Dilaudid] Allergy Hallucinati Verified 08/15/17 22:32 ng Penicillins Allergy Hives Verified 08/15/17 22:32 All systems ED: reviewed and negative except as stated. Review of Systems: As Per HPI Constitutional: Reports: weakness (generalized). Denies: fever, chills ENT ED: Reports: dysphagia (Scheduled for botox injections in esophagus by Dr. Harvey next week - Hx of esophageal stricture) Cardiovascular: Reports: as per HPI, chest pain. Denies: palpitations, dyspnea on exertion, orthopnea, edema, syncope, paroxysmal nocturnal dyspnea Respiratory: Denies: cough, dyspnea, wheezes, hemoptysis, stridor, sputum production Gastrointestinal: Denies: abdominal pain, nausea, vomiting Musculoskeletal: Denies: back pain, neck pain, joint swelling Neurological: Reports: weakness ("All over"). Denies: headache, numbness, paresthesias, confusion, vertigo Endocrine: Reports: fatigue Hematological/Lymphatic: Denies: easy bleeding, easy bruising, lymphadenopathy Chest Pain PMH - Past Medical History Medical history: Reports: arthritis, hyperlipidemia, hypertension, thyroid disease, other Surgical history: Reports: hip replacement, hysterectomy, knee replacement, orthopedic, other, other Psychiatric history: Reports: anxiety, depression - Social History Smoking Status: Never smoker Alcohol use: Reports: none Drug use: Reports: none Physical Exam - General Limitations: no limitations General appearance: alert, in no apparent distress - Head Head exam: atraumatic, normocephalic, normal inspection - Eye Eye exam: Present: normal appearance, PERRL. Absent: scleral icterus, conjunctival injection, periorbital swelling - ENT ENT exam: mucous membranes dry - Neck Neck exam: Present: normal inspection, full ROM, trachea midline. Absent: meningismus - Chest Chest inspection: Present: normal inspection - Respiratory Respiratory exam: Present: normal lung sounds bilaterally, respiratory distress. Absent: wheezes - Cardiovascular Cardiovascular exam: Present: regular rate, normal rhythm - Abdominal Exam Abdominal exam: Present: soft, Non-Tender. Absent: distention, guarding, rebound, mass, pulsatile mass - Extremities Exam Extremities exam: Present: normal inspection, normal capillary refill. Absent: pedal edema, calf tenderness - Neurological Exam Neurological exam: Present: alert, oriented X3, CN II-XII intact - Psychiatric Psychiatric exam: Present: normal affect, normal mood - Skin Skin exam: Present: warm, dry, intact, normal color Course Course Narrative: Patient presents from home with daughter and granddaughter for evaluation of chest pain. She states that this evening she was sitting at home waiting on her family to return when she had a sudden onset of left-sided chest pain. It radiated around to her back. Nothing made it better or worse. It spontaneously resolved and then returned. The pain lasted about 20 minutes each time. She came in to the ER for evaluation and upon arrival, the pain resolved. It has not returned yet. She denies dyspnea, cough, hemoptysis, fever, chills, nausea, vomiting, diaphoresis, paresthesias or unilateral weakness in the extremities. She has had generalized weakness for several days , but notes that she has not been eating or drinking much since having an episode of trouble swallowing last week. She has a history of esophageal strictures and is scheduled to have Botox injections next week. She has been on a soft diet since then. She has not taken anything for the pain. On exam, her vitals are normal with the exception of mildly elevated blood pressure. She does have history of hypertension. She is afebrile and well appearing. She is pleasant, conversant and able to laugh at my jokes. She is accompanied by family. She has no known history of coronary artery disease, but her last stress test was many years ago and her only heart catheterization was five years ago. It was normal. Labs, chest x-ray and EKG were ordered per advanced nursing protocol. These have been reviewed by myself and Dr. Carrion. Case was discussed with him. He has had [id number] time with the patient and agrees with the assessment, plan. EKG shows no acute abnormality, normal sinus rhythm, no ST elevation or depression. Chest x-ray was read by the radiologist as no acute abnormality. Labs are normal including a troponin of less than 0.03. Given the patient risk factors and history of present illness combined with her heart score of five. I feel that admission for further evaluation and management of her pain is warranted. Hospitalist has been contacted for admission. Vital Signs Temperature 98.1 F 08/15/17 22:32 Pulse Rate 67 08/15/17 22:32 Respiratory Rate 16 08/15/17 22:32 Blood Pressure 165/89 08/15/17 22:32 O2 Sat by Pulse Oximetry 96 08/15/17 22:32 Temperature 97.8 F 08/16/17 02:46 Pulse Rate 56 08/16/17 02:46 Respiratory Rate 16 08/16/17 02:46 Blood Pressure 138/77 08/16/17 02:46 O2 Sat by Pulse Oximetry 95 08/16/17 02:46 Oxygen Delivery Oxygen Delivery Room Air Chest Pain - Medical Records Medical records reviewed: Yes I reviewed the patient's medical records. - Lab Data Lab results reviewed: Yes I reviewed the patient's lab results. Result diagrams: 08/15/17 23:35 08/15/17 23:35 Lab Results 08/15/17 08/15/17 08/15/17 Range/Units 23:35 23:35 23:35 WBC 6.0 (4.3-11.1) K/mcL RBC 4.62 (3.82-4.97) M/mcL Hgb 12.6 (11.5-15.4) g/dL Hct 39.1 (35.3-44.9) % MCV 84.6 (83.0-100.0) fL MCH 27.3 L (28.0-33.3) pg MCHC 32.2 (31.6-35.5) g/dL RDW 15.0 H (11.5-14.5) % Plt Count 186 (140-400) K/mcL MPV 10.4 (9.4-12.4) fL Immature Gran % 0.2 (0-4) % Seg Neutrophils % 57.4 % Lymphocytes % 31.5 % Monocytes % 7.8 % Eosinophils % 2.8 % Basophils % 0.3 % Neutrophils # 3.4 (1.6-8.9) K/mcL Lymphocytes # 1.9 (0.6-4.6) K/mcL Monocytes # 0.5 (0.0-1.3) K/mcL Eosinophils # 0.2 (0.0-0.6) K/mcL Basophils # 0.0 (0.0-0.2) K/mcL PT 10.8 (9.4-12.1) Seconds INR 1.0 APTT 29.1 (26.0-36.0) Seconds Sodium 140 (136-145) mEq/L Potassium 4.0 (3.5-5.1) mEq/L Chloride 106 (98-107) mEq/L Carbon Dioxide 27 (23-29) mEq/L BUN 13 (8-23) mg/dL Creatinine 0.78 (0.60-1.20) mg/dL Est GFR ( Amer) > 60 (> 60) Est GFR (Non-Af Amer) > 60 (> 60) BUN/Creatinine Ratio 17 (6-26) Glucose 98 (70-105) mg/dL Calculated Osmolality 290 (280-300) Calcium 10.0 (8.6-10.3) mg/dL Troponin I < 0.03 (< 0.04) ng/mL - Radiology Data Radiology results reviewed: Yes I reviewed the patient's radiology results. Chest X-Ray 08/15/17 23:16 IMPRESSION: No acute cardiopulmonary disease. D/ / Demario Hays MD / Demario Hays MD Interpreting Provider: Demario Hays MD - EKG Data EKG attestation: Yes I reviewed and interpreted this EKG. EKG shows normal: sinus rhythm Rate: normal Rhythm: NSR [place]/QRS: normal When compared to previous EKG there are: previous EKG unavailable Interpretation: no acute changes, normal EKG Heart Score - Score History: Moderately Suspicious EKG: Normal Age: Greater than 65 Risk Factors: 1-2 risk factors Troponin: 1-3x normal limit HEART Score Total: 5 Attestation Statement - Attestation Attestation: I examined this patient and my medical decision-making was reviewed with the Resident Physician. I agree with the documented findings, disposition and treatment plan as described except to the extent set forth below. Chest pain with risk factors. Proceed with admission for ACS ro.
[2017-08-16] MEDS ORDERED: Aspirin 81 MG TAB.CHEW PO ONE (00:40)
[2017-08-16] MEDS ORDERED: Naloxone 0.4 MG/ML INJ IVP PRN (02:06)
--- NOTE | 2017-08-16 02:10 | Internal Med History&Physical ---
Date of Encounter: 08/16/17 Time of Encounter: 02:08 Assessment and Plan (1) Chest pain Current visit: Yes Status: Acute I suspect this is MSK related to pain as it is readily reproducible on palpation of the left breast. ER wanted to admit for chest pain rule out Discussed with family for troponin check. Possible discharge in the next 24 hours pending symptoms and hospitalization course Telemetry and pulse ox while inpatient Qualifiers: Chest pain type: other chest pain Qualified Code(s): R07.89 - Other chest pain; R07.8 - Other chest pain (2) HTN (hypertension) Current visit: Yes Status: Acute Qualifiers: Hypertension type: essential hypertension Qualified Code(s): I10 - Essential (primary) hypertension Internal Medicine - H&P: HPI Chief complaint: Chest pain History of present illness: Ms. Peters is a 72 year old female who presents for chest pain evaluation. Admitted for cardiac rule out. 70-year-old lady with no past cardiac history who presents with acute onset left breast pain while sitting on the couch this evening, sharp in quality, 10 out of 10 pain, radiation to the left side of the chest wall to the back. Of note she has reported not feeling well for the last few days with migraines headache. 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 Per review of symptoms she also has several nonspecific MSK related pain syndrome. She does have a history of chronic dysphagia and falls with Dr. Harvey of GI. She has a history of dilatation 3, Botox 1 of the esophagus. She is scheduled for elective Botox injection this coming Friday with GI EKG personally reviewed with rate of 63, normal sinus rhythm XR/XR chest 1V portable IMPRESSION: No acute cardiopulmonary disease. Past Med Surg Social Fam HX - Past Medical History Medical history: arthritis, hyperlipidemia, hypertension, thyroid disease, other Psychiatric history: anxiety, depression - Past Surgical History Surgical History: hip replacement, hysterectomy, knee replacement, orthopedic, other, other - Social History Smoking Status: Never smoker Smokeless Tobacco Status: No Alcohol use: none Drug use: none - Family History Daughter Adopted: No Family Member Ethnicity: Non- Living Status: Still Living Hx Family Cardiac Disorders: No Hx Family Respiratory Disorders: No Hx Family Cancer: No Hx Family GI Disorders: No Hx Family Endocrine Disorder: No Hx Family Neuromuscular Disorders: No Hx Family Neurologic Disorders: No Hx Family HEENT Disorders: No Hx Family Autoimmune Disorders: No Internal Medicine - H&P: Meds ALPRAZolam [Xanax 0.5 MG Tablet] 0.5 mg PO BID 11/06/15 [History] Atorvastatin Calcium [Lipitor] 20 mg PO QPM 11/06/15 [History] Diclofenac Potassium 50 mg PO BID 11/06/15 [History] Gabapentin [Neurontin] 300 mg PO TID 11/06/15 [History] Levothyroxine [Synthroid] 25 mcg PO QAM 11/06/15 [History] Metoprolol [Lopressor] 50 mg PO BID 11/06/15 [History] Nortriptyline [Pamelor] 10 mg PO HS 11/06/15 [History] Pantoprazole Sodium [Protonix] 40 mg PO DAILY 11/06/15 [History] Sertraline [Zoloft] 150 mg PO DAILY 11/06/15 [History] amLODIPine [Norvasc] 5 mg PO DAILY 11/06/15 [History] Oxycodone HCl [Oxycontin] 20 mg PO QID PRN 07/06/16 [History] Albuterol Sulfate [Albuterol Inhaler] 2 puff IH Q4HR #1 hfa.aer.ad 07/08/16 [Rx] Donepezil [Aricept] 10 mg PO HS tablet 07/08/16 [Rx] Oseltamivir [Tamiflu] 75 mg PO BID #7 capsule 07/08/16 [Rx] 3 Allergy/AdvReac Type Severity Reaction Status Date / Time citalopram [From Celexa] Allergy Hallucinati Verified 08/15/17 22:32 ng Hydromorphone [From Dilaudid] Allergy Hallucinati Verified 08/15/17 22:32 ng Oxycodone [From OxyContin] Allergy Hallucinati Verified 08/15/17 22:32 ng Penicillins Allergy Hives Verified 08/15/17 22:32 All Systems PM: A 10-system review of systems was performed and is negative for pertinent findings except as documented above in the HPI. Review of systems: ROS 14 point review of systems reviewed as best as possible given presentation. Pertinent positive or negative as per HPI or otherwise reviewed as negative - Constitutional Vitals: Temp Pulse Resp BP Pulse Ox 98.4 F 63 18 152/94 93 08/16/17 00:01 08/16/17 00:01 08/16/17 00:01 08/16/17 00:01 08/16/17 00:01 Exam: General - AAO x 3 Psych - Appropriate affect/speech. No agitation Eyes - ELIZABETH. Eye lids intact. No scleral icterus Neuro - No gross peripheral or central neuro deficits on inspection Heart - reproducible pain on palpation of left breast Sinus. RRR. S1 and S2 present. No added HS/murmurs appreciated. No elevated JVD appreciated. Lung - Adequate air entry b/l, No crackles/wheezes appreciated GI - Soft, non-tender. No hepatosplenomegaly/ascites. BS+ - No CVA/suprapubic tenderness or palpable bladder distension Skin - Intact. No rash/petechiae/ecchymosis. Warm extremities Internal Med - H&P Results - Labs CBC & Chem 7: 08/15/17 23:35 08/15/17 23:35
[2017-08-16] MEDS ORDERED: *HR* OxyCODONE Immed Rel 5 MG TABLET PO PRN (03:04)
[2017-08-16] MEDS ORDERED: Levothyroxine 25 MCG TABLET PO SCH (06:30)
[2017-08-16] MEDS ORDERED: amLODIPine 5 MG TABLET PO SCH (09:00)
[2017-08-16] MEDS ORDERED: Gabapentin 300 MG CAPSULE PO SCH (09:00)
[2017-08-16] MEDS ORDERED: Saline Nasal Spray 44 ML BOTTLE NS PRN (10:54)
--- NOTE | 2017-08-16 10:59 | Discharge Summary ---
- NOTES TO OUTPATIENT PROVIDER Notes to Outpatient Provider: f/u with ENT, GI services as scheduled, PCP within week, pain management doctor as directed Date of Encounter: 08/16/17 Time of Encounter: 10:56 - Discharge Diagnosis (1) Chronic neck and back pain Priority: Primary Status: Chronic Comments: Patient follows with pain management service for chronic neck and back pain. Known degenerative joint disease per patient report (2) Chest pain Priority: Primary Status: Resolved Comments: ekg NSR, no st changes troponins negative more of a skeletal in nature Chest x-ray with no acute processes Now on room air satting in the mid 90s Qualifiers: Chest pain type: other chest pain Qualified Code(s): R07.89 - Other chest pain; R07.8 - Other chest pain (3) HTN (hypertension) Priority: Primary Status: Chronic Comments: well controlled Qualifiers: Hypertension type: essential hypertension Qualified Code(s): I10 - Essential (primary) hypertension (4) Arthritis Priority: Primary Status: Chronic Comments: hands, feet, hips, elbows and back with DJD reported by daughter and patient (5) Sinusitis chronic, ethmoidal Priority: Primary Status: Chronic Comments: patient has chronic post nasal drip and is process of obtaining an auth for ENT follow up, associated with headaches (6) Esophageal stricture Priority: Primary Status: Chronic Comments: Patient with history of Botox injection and dilation of strictures, scheduled for elective procedure on Friday. Patient reports some of the pain radiates from her esophagus. Hospital course: Ms. Peters is a 72 year old female with multiple medical problems including arthritis, degenerative joint disease of the neck, fibromyalgia, hypertension, hyperlipidemia, thyroid disease, anxiety, depression, hip replacements, hysterectomy, knee replacements and other orthopedic procedures. Also esophageal stricture with previous Botox injection and chronic sinusitis. Patient has not been feeling well for several months. She was scared when she developed this sharp chest pain. On reflection she feels is probably coming from her esophagus and she is due for procedure on Friday. She also has severe DJD of her neck and gets a lot of pain referred from that area as well she does follow with a pain service who has been recommending cervical injections. She and her daughter were telling me how distressed she has been over not feeling well. She is to see ENT for her chronic sinusitis, a referral is in the process. She has no cardiac history. She resides with her daughter and is not interested in skilled placement. She is currently going to outpatient physical therapy for treatment of vertigo. He plans to follow up with her pain physician and PCP after discharge. She is ready to go home today. Please refer to details in the assessment and plan for further information from this admission. Patient was seen greater than 8 hours from admission H&P and was reevaluated with a [id number] and physical exam and face to face by this provider Discharge discussed with: patient, family, nurse - Time Spent with Patient Total time spent providing and/or coordinating discharge services: Less than 30 minutes - Discharge Medications Home Medications: Atorvastatin Calcium [Lipitor] 20 mg PO QPM 11/06/15 [History] Diclofenac Potassium 50 mg PO BID 11/06/15 [History] Gabapentin [Neurontin] 300 mg PO TID 11/06/15 [History] Levothyroxine [Synthroid] 25 mcg PO QAM 11/06/15 [History] Metoprolol [Lopressor] 50 mg PO BID 11/06/15 [History] Nortriptyline [Pamelor] 10 mg PO HS 11/06/15 [History] Pantoprazole Sodium [Protonix] 40 mg PO DAILY 11/06/15 [History] Sertraline [Zoloft] 150 mg PO DAILY 11/06/15 [History] amLODIPine [Norvasc] 5 mg PO DAILY 11/06/15 [History] Donepezil [Aricept] 10 mg PO HS tablet 07/08/16 [Rx] Oxycodone HCl 20 mg PO QID PRN 08/16/17 [History] Saline Nasal [place] [Arma Nasal [place]] 2 spray NS Q2H PRN bottle 08/16/17 [Rx] Allergies/Adverse Reactions: 3 Allergy/AdvReac Type Severity Reaction Status Date / Time citalopram [From Celexa] Allergy Hallucinati Verified 08/15/17 22:32 ng Hydromorphone [From Dilaudid] Allergy Hallucinati Verified 08/15/17 22:32 ng Penicillins Allergy Hives Verified 08/15/17 22:32 Date of admission: 08/16/17 01:30 Primary care physician: Joe Bethea MD Consults: 08/16/17 04:51 Consult to Occupational Therapy [CONS] Routine Comment: Evaluate, develop and implement POC Reason for Consult: increased weakness Does patient have active BEDREST order?: No Is patient medically & hemodynamically stable?: Yes Consult to Physical Therapy [CONS] Routine Comment: Evaluate, develop and implement POC Reason for Consult: increased weakness Does patient have active BEDREST order?: No Is patient medically & hemodynamically stable?: Yes 08/16/17 04:52 Consult to [employer] [CONS] Routine Reason for SW Consult: pt/ot consults. may need home health Discharging clinician: Linda Garvey Anticipated date of discharge: 08/16/17 - Constitutional Vitals: Temp Pulse Resp BP Pulse Ox 97.4 F L 61 16 116/77 93 08/16/17 06:38 08/16/17 06:38 08/16/17 07:32 08/16/17 06:38 08/16/17 07:32 General appearance: Present: cooperative, pleasant, no acute distress, obese, answers questions appropriately - Head Head exam: Present: atraumatic, normocephalic Additional comments: Right sided facial pain with palpation - Eye Eye exam: Present: PERRL, conjuntiva pink, sclera anicteric Pupils: Present: PERRL - Neck Neck exam general surgery: Present: supple, trachea midline. Absent: lymphadenopathy - Respiratory Respiratory exam: Present: CTAB. Absent: accessory muscle use, rales, rhonchi, wheezes - Cardiovascular Cardiovascular exam: Present: RRR, +S1, +S2. Absent: diastolic murmur, gallop, rubs, systolic murmur - GI/Abdominal GI/Abdominal exam: Present: normal bowel sounds, soft, no peritoneal signs. Absent: distended, tenderness - Extremities Exam Extremities exam: Present: warm, radial pulses palpable and symmetrical. Absent : calf tenderness, cyanotic, pedal edema Additional comments: Hand and fingers malformed with arthritis changes - Neurological Exam Neurological exam: Present: alert, CN II-XII intact, oriented X3, no focal deficits. Absent: pronater drift, facial droop, speech deficit - Skin Skin exam: Present: dry, intact, normal color, warm - Patient Status Disposition: Home, Self-Care Condition: Good Functional capacity at discharge: independent ambulation Overall status at discharge: patient is progressing back to baseline - Discharge Instructions Follow Up With: Joe Bethea MD [Primary Care Provider] - - Diet and Activity Activity: increase activity as tolerated Diet: advance to your usual diet
[2017-08-16 11:34] VITALS: BP 115/72
--- NOTE | 2017-08-19 06:54 | Electrocardiograph Report ---
[address] [address] Test Date: 2017-08-15 Pat Name: Roxana Peters Department: 104 Room: 3B Gender: F [employer]elesales Manager: : 1945 Requested By: Ronnie Carrion Order Number: [id number] Reading MD: Collins Jama MD Measurements Intervals [place] Rate: 63 P: 64 MN: 186 QRS: -11 QRSD: 90 T: 24 QT: 412 QTc: 419 Interpretive Statements SINUS RHYTHM LOW QRS VOLTAGE IN PRECORDIAL LEADS Electronically Signed On 08-19-2017 6:53:32 EDT by Collins Jama MD
== END 2017-08-16 12:02 | disposition home or self-care (01) ==
LOC: 3BNU 22:29 → EMEROO 22:29 → SUATTDRO 08-16 01:30 → 3BNU 08-16 01:55
PROVIDERS: ADMIT Internal Medicine Hematology & Oncology; ATTEND Internal Medicine Hematology & Oncology

== ENCOUNTER 2018-11-01 13:14 | Observation (INO) ==
[2018-11-01] MEDS ORDERED: 0.9 % Sodium Chloride 500 ML IVC ONE (13:30)
--- NOTE | 2018-11-01 13:38 | Emergency Department Note ---
Disposition Clinical Impression: Polypharmacy, Hypoxia Overdose Qualifiers: Encounter type: initial encounter Injury intent: accidental or unintentional Qu alified Code(s): T50.901A - Poisoning by unspecified drugs, medicaments and biological substances, accidental (unintentional), initial encounter Disposition: Admitted As Inpatient Condition: Fair Time of Disposition: 17:30 General Adult HPI - General Chief complaint: ED Overdose Stated complaint: Unresponsive Time Seen by Provider: 11/01/18 13:22 Source: patient, family, EMS Mode of arrival: EMS Limitations: altered mental status Nursing Notes Reviewed: Yes Vital Signs Reviewed: Yes - History of Present Illness HPI Narrative: Patient is a 73-year-old female that presents the emergency department due to altered mentation and hypoxia. EMS reported that when they arrived to the scene that she had an oxygen saturation in the 80s and was breathing approximately 14 times a minute. States that she did have some perioral cyanosis. They did state that they gave Narcan in route and the patient significantly improved and perked up. Prior to this she had significant altered mentation was minimally responsive to stimuli. Patient does take Percocet at home however family states that this is locked up and it was given to her by someone monitoring her medications. Patient states that she has not having any pain anywhere. She does have a history of dementia. Pain Scale: 0 - Related Data Home Medications Medication Instructions Recorded Confirmed Diclofenac Potassium 50 mg PO BID 11/06/15 11/01/18 Gabapentin [Neurontin] 300 mg PO TID 11/06/15 11/01/18 Metoprolol [Lopressor] 50 mg PO BID 11/06/15 11/01/18 Nortriptyline [Pamelor] 10 mg PO HS 11/06/15 11/01/18 Pantoprazole Sodium [Protonix] 40 mg PO DAILY 11/06/15 11/01/18 amLODIPine [Norvasc] 5 mg PO DAILY 11/06/15 11/01/18 Levothyroxine Sodium 112 mcg PO QAM 08/19/17 11/01/18 Donepezil [Aricept] 10 mg PO HS 11/01/18 11/01/18 Memantine HCl 10 mg PO BID 11/01/18 11/01/18 Oxycodone HCl 15 mg PO TID PRN 11/01/18 11/01/18 Sertraline [Zoloft] 50 mg PO DAILY 11/01/18 11/01/18 Previous Rx's Medication Instructions Recorded Saline Nasal [place] [[place] Nasal 2 spray NS Q2H PRN bottle 08/16/17 [place]] Allergies Allergy/AdvReac Type Severity Reaction Status Date / Time citalopram [From Celexa] Allergy Hallucinati Verified 11/01/18 13:16 ng hydromorphone [From Dilaudid] Allergy Hallucinati Verified 11/01/18 13:16 ng Penicillins Allergy Hives Verified 11/01/18 13:16 All systems ED: reviewed and negative except as stated. Constitutional: Denies: fever Cardiovascular: Denies: chest pain Respiratory: Denies: dyspnea Gastrointestinal: Denies: abdominal pain Genitourinary: Denies: dysuria, frequency, hematuria Neurological: Denies: weakness, numbness, paresthesias Past Medical History - Past Medical History Medical history: Reports: arthritis, hyperlipidemia, hypertension, thyroid disease, other Surgical history: Reports: hip replacement, hysterectomy, knee replacement, orthopedic, other, other Psychiatric history: Reports: anxiety, depression - Social History Smoking Status: Never smoker Smokeless Tobacco Status: No Alcohol use: Reports: none Drug use: Reports: none Physical Exam - General Limitations: altered mental status General appearance: alert, in no apparent distress - Head Head exam: atraumatic, normocephalic - Eye Eye exam: Present: normal appearance, EOMI - Neck Neck exam: Present: normal inspection, full ROM, trachea midline - Respiratory Respiratory exam: Present: normal lung sounds bilaterally. Absent: respiratory distress, wheezes - Cardiovascular Cardiovascular exam: Present: regular rate, normal rhythm, normal heart sounds, +S1, +S2 - Abdominal Exam Abdominal exam: Present: soft, Non-Tender, normal bowel sounds - Neurological Exam Neurological exam: Present: alert, oriented X3 - Expanded Neurological Exam Cranial nerves: EOM function (II, III, IV, ): Normal, facial sensation (V): Normal, facial palsy (VII): Normal, gag reflex (IX): Normal, spinal accessory function (XI): Normal, tongue deviation (XII): Normal Motor strength - LUE: 5/5 Motor strength - RUE: 5/5 Motor strength - LLE: 5/5 Motor strength - RLE: 5/5 Sensory exam upper extremity: light touch: Normal Sensory exam lower extremity: light touch: Normal Coma Scale Eye Opening: Spontaneous Coma Scale Motor Response: Obeys Commands Coma Scale Verbal Response: Oriented Coma Scale Total: 15 - Psychiatric Psychiatric exam: Present: normal affect, normal mood - Skin Skin exam: Present: warm, dry, intact Course Vital Signs Temperature 98.2 F 11/01/18 13:16 Pulse Rate 114 11/01/18 13:16 Respiratory Rate 20 11/01/18 13:16 Blood Pressure 159/118 11/01/18 13:16 O2 Sat by Pulse Oximetry 95 11/01/18 13:16 Temperature 98.4 F 11/01/18 18:40 Pulse Rate 65 11/01/18 18:40 Respiratory Rate 18 11/01/18 18:40 Blood Pressure 113/66 11/01/18 18:40 O2 Sat by Pulse Oximetry 95 11/01/18 18:40 Oxygen Delivery Oxygen Delivery Nasal Cannula Medical Decision Making - MDM Narrative Medical decision making narrative: Due the patient's into the emergency department with reports of altered mentat ion and hypoxia we will obtain basic laboratory testing and a CT scan of the patient's head. Patient had improvement with Narcan in route. Patient was given 1 mg of Narcan here in the ER due to having increased drowsiness. The patient's head CT and CTAs were negative for acute findings. The patient's laboratory testing is relatively unremarkable. Her urine tox screen was positive for opiates. Feel her symptoms are likely secondary to polypharmacy. Patient also been placed on BiPAP while she was in the emergency department in significant improvement of her mentation. Patient was ultimately able to be taken off the BiPAP. I suspect that the patient had polypharmacy and respiratory depression and became hypoxic and hypercarbic and the patient became altered. Narcan did provide some relief due to having opiates on board however due to the patient having hypercarbia the patient continued to be altered. The BiPAP assisted with clearance of his CO2 the patient's mentation improved. Patient was admitted to the hospital for further evaluation and management. Patient was accepted by the hospitalist Dr. Vallecillo. - Medical Records Medical records reviewed: Yes I reviewed the patient's medical records. - Lab Data Lab results reviewed: Yes I reviewed the patient's lab results. Result diagrams: 11/01/18 13:22 11/01/18 13:22 Lab Results 11/01/18 11/01/18 11/01/18 Range/Units 13:22 13:22 13:22 WBC 4.7 (4.3-11.1) K/mcL RBC 4.20 (3.82-4.97) M/mcL Hgb 11.8 (11.5-15.4) g/dL Hct 38.0 (35.3-44.9) % MCV 90.5 (83.0-100.0) fL MCH 28.1 (28.0-33.3) pg MCHC 31.1 L (31.6-35.5) g/dL RDW 13.9 (11.5-14.5) % Plt Count 189 (140-400) K/mcL MPV 10.4 (9.4-12.4) fL Immature Gran % 0.2 (0-4) % Seg Neutrophils % 50.1 % Lymphocytes % 36.6 % Monocytes % 9.9 % Eosinophils % 3.2 % Basophils % 0.0 % Neutrophils # 2.3 (1.6-8.9) K/mcL Lymphocytes # 1.7 (0.6-4.6) K/mcL Monocytes # 0.5 (0.0-1.3) K/mcL Eosinophils # 0.2 (0.0-0.6) K/mcL Basophils # 0.0 (0.0-0.2) K/mcL PT 11.6 (9.4-12.1) Seconds INR 1.0 Sample Site ABG pH (7.32-7.45) pH Units ABG pCO2 (35-45) mmHg ABG pO2 (85-104) mmHg ABG HCO3 (21-27) mEq/L ABG Total CO2 (20-26) mEq/L ABG O2 Saturation (95-98) % ABG Base Excess (-2 to 3) mEq/L Fran Test VBG pH (7.32-7.42) pH Units VBG pCO2 (41-51) mmHg VBG pO2 (25-50) mmHg VBG HCO3 (21-27) mEq/L O2 Delivery Device Inspired O2 (1-15=lpm [id number]=%) Sodium 138 (136-145) mEq/L Potassium 4.7 (3.5-5.1) mEq/L Chloride 106 (98-107) mEq/L Carbon Dioxide 29 (23-29) mEq/L BUN 15 (8-23) mg/dL Creatinine 0.97 (0.60-1.20) mg/dL Est GFR ( Amer) > 60 (> 60) Est GFR (Non-Af Amer) 56 L (> 60) BUN/Creatinine Ratio 15 (6-26) Glucose 89 (70-105) mg/dL Calculated Osmolality 286 (280-300) Lactic Acid (0.5-2.2) mmol/L Calcium 9.2 (8.6-10.3) mg/dL Total Bilirubin 0.4 (0.3-1.0) mg/dL Direct Bilirubin 0.0 (0.0-0.2) mg/dL Indirect Bilirubin 0.4 (0.0-1.2) mg/dL AST 20 (13-39) Units/L ALT 14 (7-52) Units/L Alkaline Phosphatase 51 (34-104) Units/L Ammonia (16-53) mcmol/L Troponin I < 0.03 (< 0.04) ng/mL Serum Total Protein 6.4 (6.4-8.9) g/dL Albumin 4.1 (3.5-5.7) g/dL Globulin 2.3 L (2.4-3.5) g/dL Albumin/Globulin Ratio 1.8 (1.1-2.2) TSH 2.230 (0.340-5.600) mcIU/mL Urine Color (Yellow) Urine Clarity (Clear) Urine pH (5.0-8.0) pH Units Ur Specific [place] (1.010-1.025) Urine Protein (Neg-Trace) mg/dL Urine Glucose (UA) (Normal) mg/dL Urine Ketones (Negative) mg/dL Urine Blood (Negative) Urine Nitrite (Negative) Urine Bilirubin (Negative) Urine Urobilinogen (Normal) mg/dL Ur Leukocyte Esterase (Negative) Ur Culture Indicated? (NO) Urine Opiates Screen (Ibjlgr=164) ng/mL Ur Barbiturates Screen (Bqlokq=797) ng/mL Ur Phencyclidine Scrn (Cutoff=25) ng/mL Ur Amphetamines Screen (Hsigmn=7130) ng/mL U Benzodiazepines Scrn (Yrcghz=239) ng/mL Urine Cocaine Screen (Cutoff= 300) ng/mL U Marijuana (THC) Screen (Cutoff = 50) ng/mL Ur Drug Screen Interp Ethyl Alcohol < 10 (Less than 10) mg/dL 11/01/18 11/01/18 11/01/18 Range/Units 13:53 14:28 14:28 WBC (4.3-11.1) K/mcL RBC (3.82-4.97) M/mcL Hgb (11.5-15.4) g/dL Hct (35.3-44.9) % MCV (83.0-100.0) fL MCH (28.0-33.3) pg MCHC (31.6-35.5) g/dL RDW (11.5-14.5) % Plt Count (140-400) K/mcL MPV (9.4-12.4) fL Immature Gran % (0-4) % Seg Neutrophils % % Lymphocytes % % Monocytes % % Eosinophils % % Basophils % % Neutrophils # (1.6-8.9) K/mcL Lymphocytes # (0.6-4.6) K/mcL Monocytes # (0.0-1.3) K/mcL Eosinophils # (0.0-0.6) K/mcL Basophils # (0.0-0.2) K/mcL PT (9.4-12.1) Seconds INR Sample Site ABG pH (7.32-7.45) pH Units ABG pCO2 (35-45) mmHg ABG pO2 (85-104) mmHg ABG HCO3 (21-27) mEq/L ABG Total CO2 (20-26) mEq/L ABG O2 Saturation (95-98) % ABG Base Excess (-2 to 3) mEq/L Fran Test VBG pH 7.27 L (7.32-7.42) pH Units VBG pCO2 66 H (41-51) mmHg VBG pO2 43 (25-50) mmHg VBG HCO3 31 H (21-27) mEq/L O2 Delivery Device Inspired O2 (1-15=lpm [id number]=%) Sodium (136-145) mEq/L Potassium (3.5-5.1) mEq/L Chloride (98-107) mEq/L Carbon Dioxide (23-29) mEq/L BUN (8-23) mg/dL Creatinine (0.60-1.20) mg/dL Est GFR ( Amer) (> 60) Est GFR (Non-Af Amer) (> 60) BUN/Creatinine Ratio (6-26) Glucose (70-105) mg/dL Calculated Osmolality (280-300) Lactic Acid (0.5-2.2) mmol/L Calcium (8.6-10.3) mg/dL Total Bilirubin (0.3-1.0) mg/dL Direct Bilirubin (0.0-0.2) mg/dL Indirect Bilirubin (0.0-1.2) mg/dL AST (13-39) Units/L ALT (7-52) Units/L Alkaline Phosphatase (34-104) Units/L Ammonia (16-53) mcmol/L Troponin I (< 0.04) ng/mL Serum Total Protein (6.4-8.9) g/dL Albumin (3.5-5.7) g/dL Globulin (2.4-3.5) g/dL Albumin/Globulin Ratio (1.1-2.2) TSH (0.340-5.600) mcIU/mL Urine Color Yellow (Yellow) Urine Clarity Clear (Clear) Urine pH 7.0 (5.0-8.0) pH Units Ur Specific [place] 1.010 (1.010-1.025) Urine Protein Negative (Neg-Trace) mg/dL Urine Glucose (UA) Normal (Normal) mg/dL Urine Ketones Negative (Negative) mg/dL Urine Blood Negative (Negative) Urine Nitrite Negative (Negative) Urine Bilirubin Negative (Negative) Urine Urobilinogen Normal (Normal) mg/dL Ur Leukocyte Esterase Negative (Negative) Ur Culture Indicated? NO (NO) Urine Opiates Screen Positive H (Mogybr=773) ng/mL Ur Barbiturates Screen Negative (Zoebux=315) ng/mL Ur Phencyclidine Scrn Negative (Cutoff=25) ng/mL Ur Amphetamines Screen Negative (Uibyqf=9060) ng/mL U Benzodiazepines Scrn Negative (Nbilcf=176) ng/mL Urine Cocaine Screen Negative (Cutoff= 300) ng/mL U Marijuana (THC) Screen Negative (Cutoff = 50) ng/mL Ur Drug Screen Interp See Below Ethyl Alcohol (Less than 10) mg/dL 11/01/18 11/01/18 11/01/18 Range/Units 15:07 15:07 15:43 WBC (4.3-11.1) K/mcL RBC (3.82-4.97) M/mcL Hgb (11.5-15.4) g/dL Hct (35.3-44.9) % MCV (83.0-100.0) fL MCH (28.0-33.3) pg MCHC (31.6-35.5) g/dL RDW (11.5-14.5) % Plt Count (140-400) K/mcL MPV (9.4-12.4) fL Immature Gran % (0-4) % Seg Neutrophils % % Lymphocytes % % Monocytes % % Eosinophils % % Basophils % % Neutrophils # (1.6-8.9) K/mcL Lymphocytes # (0.6-4.6) K/mcL Monocytes # (0.0-1.3) K/mcL Eosinophils # (0.0-0.6) K/mcL Basophils # (0.0-0.2) K/mcL PT (9.4-12.1) Seconds INR Sample Site R Brach ABG pH 7.41 (7.32-7.45) pH Units ABG pCO2 43 (35-45) mmHg ABG pO2 87 (85-104) mmHg ABG HCO3 27 (21-27) mEq/L ABG Total CO2 28 H (20-26) mEq/L ABG O2 Saturation 97 (95-98) % ABG Base Excess 2 (-2 to 3) mEq/L Fran Test N/A VBG pH (7.32-7.42) pH Units VBG pCO2 (41-51) mmHg VBG pO2 (25-50) mmHg VBG HCO3 (21-27) mEq/L O2 Delivery Device BiPAP Inspired O2 30.0 (1-15=lpm [id number]=%) Sodium (136-145) mEq/L Potassium (3.5-5.1) mEq/L Chloride (98-107) mEq/L Carbon Dioxide (23-29) mEq/L BUN (8-23) mg/dL Creatinine (0.60-1.20) mg/dL Est GFR ( Amer) (> 60) Est GFR (Non-Af Amer) (> 60) BUN/Creatinine Ratio (6-26) Glucose (70-105) mg/dL Calculated Osmolality (280-300) Lactic Acid 1.1 (0.5-2.2) mmol/L Calcium (8.6-10.3) mg/dL Total Bilirubin (0.3-1.0) mg/dL Direct Bilirubin (0.0-0.2) mg/dL Indirect Bilirubin (0.0-1.2) mg/dL AST (13-39) Units/L ALT (7-52) Units/L Alkaline Phosphatase (34-104) Units/L Ammonia 39 (16-53) mcmol/L Troponin I (< 0.04) ng/mL Serum Total Protein (6.4-8.9) g/dL Albumin (3.5-5.7) g/dL Globulin (2.4-3.5) g/dL Albumin/Globulin Ratio (1.1-2.2) TSH (0.340-5.600) mcIU/mL Urine Color (Yellow) Urine Clarity (Clear) Urine pH (5.0-8.0) pH Units Ur Specific [place] (1.010-1.025) Urine Protein (Neg-Trace) mg/dL Urine Glucose (UA) (Normal) mg/dL Urine Ketones (Negative) mg/dL Urine Blood (Negative) Urine Nitrite (Negative) Urine Bilirubin (Negative) Urine Urobilinogen (Normal) mg/dL Ur Leukocyte Esterase (Negative) Ur Culture Indicated? (NO) Urine Opiates Screen (Dbgwwe=777) ng/mL Ur Barbiturates Screen (Vdnepd=451) ng/mL Ur Phencyclidine Scrn (Cutoff=25) ng/mL Ur Amphetamines Screen (Ccwvtk=4220) ng/mL U Benzodiazepines Scrn (Pbdiud=481) ng/mL Urine Cocaine Screen (Cutoff= 300) ng/mL U Marijuana (THC) Screen (Cutoff = 50) ng/mL Ur Drug Screen Interp Ethyl Alcohol (Less than 10) mg/dL - Radiology Data Radiology results reviewed: Yes I reviewed the patient's radiology results. Chest X-Ray 11/01/18 13:26 IMPRESSION: No acute cardiopulmonary disease D/ / Jonh Diaz MD / Jonh Diaz MD Interpreting Provider: Jonh Daiz MD Head CT 11/01/18 13:27 IMPRESSION: No acute intracranial abnormality. Age related changes including chronic small vessel ischemic disease and cerebral atrophy. D/ / Sherry Dunn MD / Sherry Dunn MD Interpreting Provider: Sherry Dunn MD Head CTA 11/01/18 14:42 IMPRESSION: No flow limiting stenosis or branch occlusion detected within the head or neck. D/ / Kris Martin MD / Kris Martin MD Interpreting Provider: Kris Martin MD Neck CTA 11/01/18 14:42 IMPRESSION: No flow limiting stenosis or branch occlusion detected within the head or neck. D/ / Kris Martin MD / Kris Martin MD Interpreting Provider: Kris Martin MD - EKG Data EKG #1 EKG attestation: Yes I reviewed and interpreted this EKG. EKG results narrative: Patient's EKG shows a sinus rhythm and rate of 63 bpm, OH interval 21, QRS duration 96, QTc of 425. There is no evidence of STEMI and EKG. Attestation Statement - Attestation Attestation: Resident Attestation: I examined this patient and my medical decision making was reviewed with the Resident Physician. I agree with the documented findings, disposition and treatment plan as described except to the extent set forth belo w. We independently had [id number] contact with the patient.EKG reviewed with resident physician. Agree with documentation. Patient presenting to the emergency department for evaluation of confusion, decreased responsiveness, hypoxia. EMS was called and when arrived gave the patient Narcan secondary to decreased responsiveness. They stated that the patient had initial good response. Patient rubs the emergency department with intermittent episodes of being awake and able to state her name and where she is at. Patient however has had episodes of decreased responsiveness. I then called into the room multiple times to evaluate this but upon entering and loudly stating her name she opens her eyes to respond. Patient responded to her second dose of Narcan as well but did not respond to the third dose. Patient will undergo further evaluation for intracranial abnormalities. Patient had a VBG performed which did show hypercarbia as well as a acidosis. BiPAP was applied and a repeat ABG was performed which showed resolution. Patient has continued to improve within the emergency department and her speech is now only slightly diminished which is possibly secondary to how to drive her mucous membranes are. Patient will undergo fluid resuscitation and continued observation. Patient will be admitted for further management.
[2018-11-01 13:55] LABS: Eosinophils # 0.2 K/mcL (0.0-0.6); Eosinophils % 3.2 %; Hemoglobin 11.8 g/dL (11.5-15.4); Immature Granulocytes % 0.2 % (0-4); Lymphocytes # 1.7 K/mcL (0.6-4.6); Lymphocytes % 36.6 %; Mean Corpuscular HGB Conc 31.1 g/dL (31.6-35.5); Mean Corpuscular Hemoglobin 28.1 pg (28.0-33.3); Mean Corpuscular Volume 90.5 fL (83.0-100.0); Mean Platelet Volume 10.4 fL (9.4-12.4); Monocytes # 0.5 K/mcL (0.0-1.3); Monocytes % 9.9 %; Neutrophils # 2.3 K/mcL (1.6-8.9); Platelet Count 189 K/mcL (140-400); Red Cell Distribution Width 13.9 % (11.5-14.5); Segmented Neutrophils % 50.1 %; White Blood Count 4.7 K/mcL (4.3-11.1)
[2018-11-01 13:56] LABS: VBG HCO3 31 mEq/L (21-27); VBG PCO2 66 mmHg (41-51); VBG PH 7.27 pH Units (7.32-7.42); VBG PO2 43 mmHg (25-50)
[2018-11-01 14:01] LABS: Prothrombin Time 11.6 Seconds (9.4-12.1)
[2018-11-01] MEDS ORDERED: Ipratropium/Albuterol Neb 3 ML IH ONE (14:04)
[2018-11-01 14:19] LABS: Alanine Aminotransferase 14 Units/L (7-52); Albumin 4.1 g/dL (3.5-5.7); Albumin/Globulin Ratio 1.8 (1.1-2.2); Alkaline Phosphatase 51 Units/L (34-104); Aspartate Amino Transferase 20 Units/L (13-39); BUN/Creatinine Ratio 15 (6-26); Bilirubin,Indirect 0.4 mg/dL (0.0-1.2); Bilirubin,Total 0.4 mg/dL (0.3-1.0); Blood Urea Nitrogen 15 mg/dL (8-23); Calcium 9.2 mg/dL (8.6-10.3); Carbon Dioxide 29 mEq/L (23-29); Chloride 106 mEq/L (98-107); Ethanol < 10 mg/dL (Less than 10); Globulin 2.3 g/dL (2.4-3.5); Glucose 89 mg/dL (70-105); Osmolality,Calculated 286 (280-300); Potassium 4.7 mEq/L (3.5-5.1); Sodium 138 mEq/L (136-145); Total Protein 6.4 g/dL (6.4-8.9); Troponin I < 0.03 ng/mL (< 0.04); eGFR For African Americans > 60 (> 60); eGFR For Non-African Americans 56 (> 60)
[2018-11-01] MEDS ORDERED: 0.9 % Sodium Chloride 1,000 ML ONE (14:20)
[2018-11-01 14:37] LABS: Bilirubin,Urine Negative (Negative); Blood,Urine Negative (Negative); Clarity,Urine Clear (Clear); Color,Urine Yellow (Yellow); Glucose,Urine (UA) Normal (Normal); Ketones,Urine Negative (Negative); Leukocyte Esterase,Urine Negative (Negative); Nitrite,Urine Negative (Negative); Protein,Urine Negative (Neg-Trace); Urobilinogen,Urine Normal (Normal)
[2018-11-01] MEDS ORDERED: Isovue-370 500 ML BOTTLE IVP ONE (14:42)
[2018-11-01 14:57] LABS: Amphetamine Screen,Urine Negative ng/mL (Cutoff=1000); Barbiturate Screen,Urine Negative ng/mL (Cutoff=200); Benzodiazepines Screen,Urine Negative ng/mL (Cutoff=200); Cannabinoid Screen,Urine Negative ng/mL (Cutoff = 50); Cocaine Screen,Urine Negative ng/mL (Cutoff= 300); Opiate Screen,Urine Positive ng/mL (Cutoff=300); Phencyclidine Screen,Urine Negative ng/mL (Cutoff=25)
[2018-11-01 15:46] LABS: ABG Base Excess 2 mEq/L (-2 to 3); ABG HCO3 27 mEq/L (21-27); ABG Oxygen Saturation 97 % (95-98); ABG PCO2 43 mmHg (35-45); ABG PH 7.41 pH Units (7.32-7.45); ABG PO2 87 mmHg (85-104); ABG TCO2 28 mEq/L (20-26)
--- NOTE | 2018-11-01 18:04 | Internal Med History&Physical ---
Date of Encounter: 11/01/18 Time of Encounter: 19:18 Internal Medicine - H&P: HPI History of present illness: Ms. Peters is a 73 year old female presented to ED for altered mental status and hypoxia. It was reported that patient was hypoxic with O2 sats in 80s. She was given Narcan en route and she became more alert. Patient takes Percocet at home. Her main lumber marker is her daughter who was out of town and was not administering medications recently, but are still administered with close s upervision. Patient had BMP, CBC, Ammonia, LFTs, CT head, CTA head/neck all within normal limits. 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 Past Med Surg Social Fam HX - Past Medical History Medical history: arthritis, hyperlipidemia, hypertension, thyroid disease, other Additional medical history: DDD, Narrowing of esophagus, Diverticulitis Psychiatric history: anxiety, depression - Past Surgical History Surgical History: hip replacement, hysterectomy, knee replacement, orthopedic, other, other Additional surgical history: Esophageal dilation - Social History Smoking Status: Never smoker Smokeless Tobacco Status: No Alcohol use: none Drug use: none - Family History Daughter Adopted: No Family Member Ethnicity: Non- Living Status: Still Living Hx Family Cardiac Disorders: No Hx Family Respiratory Disorders: No Hx Family Cancer: No Hx Family GI Disorders: No Hx Family Endocrine Disorder: No Hx Family Neuromuscular Disorders: No Hx Family Neurologic Disorders: No Hx Family HEENT Disorders: No Hx Family Autoimmune Disorders: No Internal Medicine - H&P: Meds Diclofenac Potassium 50 mg PO BID 11/06/15 [History] Gabapentin [Neurontin] 300 mg PO TID 11/06/15 [History] Metoprolol [Lopressor] 50 mg PO BID 11/06/15 [History] Nortriptyline [Pamelor] 10 mg PO HS 11/06/15 [History] Pantoprazole Sodium [Protonix] 40 mg PO DAILY 11/06/15 [History] amLODIPine [Norvasc] 5 mg PO DAILY 11/06/15 [History] Saline Nasal [place] [[place] Nasal [place]] 2 spray NS Q2H PRN bottle 08/16/17 [Rx] Levothyroxine Sodium 112 mcg PO QAM 08/19/17 [History] Donepezil [Aricept] 10 mg PO HS 11/01/18 [History] Memantine HCl 10 mg PO BID 11/01/18 [History] Oxycodone HCl 15 mg PO TID PRN 11/01/18 [History] Sertraline [Zoloft] 50 mg PO DAILY 11/01/18 [History] Allergy/AdvReac Type Severity Reaction Status Date / Time citalopram [From Celexa] Allergy Hallucinati Verified 11/01/18 13:16 ng hydromorphone [From Dilaudid] Allergy Hallucinati Verified 11/01/18 13:16 ng Penicillins Allergy Hives Verified 11/01/18 13:16 ROS unobtainable: due to mental status All Systems PM: A 10-system review of systems was performed and is negative for pertinent findings except as documented above in the HPI. - Constitutional Vitals: Temp Pulse Resp BP Pulse Ox 98.2 F 65 20 99/67 95 11/01/18 13:16 11/01/18 17:36 11/01/18 17:36 11/01/18 17:36 11/01/18 17:36 General appearance: Present: A&O X 3 Exam: Wakes with verbal stimuli and answers questions appropriately, but will go back to sleep after answering questions. - Head Head exam: Present: atraumatic, normocephalic - Eye Eye exam: Present: PERRL, conjuntiva pink, sclera anicteric Pupils: Present: PERRL - ENT ENT exam: Present: mucous membranes dry - Neck Neck exam general surgery: Present: supple, trachea midline. Absent: lymphadenopathy - Respiratory Respiratory exam: Present: CTAB. Absent: accessory muscle use, rales, rhonchi, wheezes - Cardiovascular Cardiovascular exam: Present: RRR, +S1, +S2. Absent: diastolic murmur, gallop, rubs, systolic murmur - GI/Abdominal GI/Abdominal exam: Present: normal bowel sounds, soft, no peritoneal signs. Absent: distended, tenderness - Extremities Exam Extremities exam: Present: warm, radial pulses palpable and symmetrical. Absent: calf tenderness, cyanotic, pedal edema - Neurological Exam Neurological exam: Present: CN II-XII intact, oriented X3, no focal deficits. Absent: pronater drift, facial droop, speech deficit - Skin Skin exam: Present: dry, intact Internal Med - H&P Results - Labs CBC & Chem 7: 11/01/18 13:22 11/01/18 13:22 Labs: Short CBC 11/01/18 Range/Units 13:22 WBC 4.7 (4.3-11.1) K/mcL Hgb 11.8 (11.5-15.4) g/dL Hct 38.0 (35.3-44.9) % Plt Count 189 (140-400) K/mcL Neutrophils # 2.3 (1.6-8.9) K/mcL BMP 11/01/18 13:22 Sodium 138 Potassium 4.7 Chloride 106 Carbon Dioxide 29 BUN 15 Creatinine 0.97 Glucose 89 Calcium 9.2 Cardiac Enzymes 11/01/18 Range/Units 13:22 Troponin I < 0.03 (< 0.04) ng/mL Liver Function 11/01/18 Range/Units 13:22 Total Bilirubin 0.4 (0.3-1.0) mg/dL Direct Bilirubin 0.0 (0.0-0.2) mg/dL AST 20 (13-39) Units/L ALT 14 (7-52) Units/L Alkaline Phosphatase 51 (34-104) Units/L Albumin 4.1 (3.5-5.7) g/dL Urine 11/01/18 Range/Units 14:28 Urine Color Yellow (Yellow) Urine Clarity Clear (Clear) Urine pH 7.0 (5.0-8.0) pH Units Ur Specific [place] 1.010 (1.010-1.025) Urine Protein Negative (Neg-Trace) mg/dL Urine Glucose (UA) Normal (Normal) mg/dL - ABG Interpretation ABG results: 11/01/18 11/01/18 13:53 15:43 ABG pH 7.41 ABG pCO2 43 ABG pO2 87 ABG HCO3 27 ABG Total CO2 28 H ABG O2 Saturation 97 ABG Base Excess 2 VBG pH 7.27 L VBG pCO2 66 H VBG pO2 43 VBG HCO3 31 H - Impressions ITS Impressions Chest X-Ray 11/01/18 13:26 IMPRESSION: No acute cardiopulmonary disease D/ / Jonh Diaz MD / Jonh Diaz MD Interpreting Provider: Jonh Diaz MD Head CT 11/01/18 13:27 IMPRESSION: No acute intracranial abnormality. Age related changes including chronic small vessel ischemic disease and cerebral atrophy. D/ / Sherry Dunn MD / Sherry Dunn MD Interpreting Provider: Sherry Dunn MD Head CTA 11/01/18 14:42 IMPRESSION: No flow limiting stenosis or branch occlusion detected within the head or neck. D/ / Kris Martin MD / Krsi Martin MD Interpreting Provider: Kris Martin MD Neck CTA 11/01/18 14:42 IMPRESSION: No flow limiting stenosis or branch occlusion detected within the head or neck. D/ / Kris Martin MD / Kris Martin MD Interpreting Provider: Kris Martin MD - Assessment and Plan (1) Acute metabolic encephalopathy Current Visit: Yes Status: Acute Assessment and plan: Due to opiate intoxication, patient doing better according to daughter at bedside states she is more alert. Currently requiring supplemental oxygen. Appears slightly dehydrated. No focal deficits on exam so suggest CVA, unremarkable CT head, head/neck angio. - Gentle IV fluid hydration - Continue O2 supplementation and wean as tolerated. - Hold [employer] sedating medications - will be cautious to avoid withdrawal of oxycodone and gabapentin (2) Acute respiratory failure with hypoxia Current Visit: Yes Status: Acute - Time Spent With Patient Total time spent is greater than 50% in coordination of care (as documented) at patient's floor/unit and/or counseling patient:
[2018-11-01] MEDS ORDERED: Saline Nasal Spray 44 ML BOTTLE NS PRN (19:14)
[2018-11-01] MEDS ORDERED: Naloxone 0.4 MG/ML INJ IVP PRN (19:18)
[2018-11-01] MEDS: Ringers Solution, Lactated 1,000 ML IVC SCH (20:13)
--- NOTE | 2018-11-02 09:32 | Discharge Summary ---
<Lisa Cordero - Last Filed: 11/02/18 11:58> - NOTES TO OUTPATIENT PROVIDER Notes to Outpatient Provider: Admitted for acute respiratory failure with hypoxia and acute metabolic encephalopathy secondary to oxycodone. Likely contributed by her severe VADIM that she does not use CPAP machine. EMS reported hypoxic SpO2 80s. Patient received Narcan and became more alert en route. Patient instructed to use CPAP machine into follow-up with pain management doctor who manages her oxycodone dose. Patient lives with her daughter. Orders not resulted at time of discharge: Pending orders 11/01/18 15:07 Culture,Blood [BC] Stat Date of Encounter: 11/02/18 Time of Encounter: 09:28 - Discharge Diagnosis (1) Acute metabolic encephalopathy Priority: Secondary Status: Acute (2) Acute respiratory failure with hypoxia Priority: Primary Status: Acute Hospital course: Ms. Peters is a 73 year old female with past medical history of hyperlipidemia, hypertension, thyroid disease, obstructive sleep apnea who presented to [facility] hypoxic with SpO2 80s. EMS had given the patient Narcan and routes and she became more alert. She was admitted for acute respiratory distress with hypoxia and acute metabolic encephalopathy secondary to opiate use. This is likely contributed by the patient's severe obstructive sleep apnea that she does not use her CPAP machine. Stroke was ruled out. Head CT, head/neck CTA, chest x-ray, ammonia, troponin, LFTs were unremarkable. The patient's family was at the bedside in the patient was alert and oriented times 3. Patient's family stated that she was back to her baseline. The patient takes her oxycodone medication regularly. She did not think she took extra medication. On examination she was alert and oriented times 3 no acute distress. She denied fever, chills, chest pain, shortness of breath, abdominal pain. She follows with a pain management physician who prescribed oxycodone. She was told to follow up with him and discuss dosing as low dose may be more safe for her in light of recent events and her chronic severe VADIM. Patient instructed to use CPAP machine always at that time. She stated clear understanding of the treatment plan. She was told to follow up with her PCP in one week. Discharge discussed with: patient, family, nurse - Time Spent with Patient Total time spent providing and/or coordinating discharge services: Time spent: Greater than 30 minutes - Discharge Medications Prescriptions: Continued amLODIPine [Norvasc] 5 mg PO DAILY Nortriptyline [Pamelor] 10 mg PO HS Metoprolol [Lopressor] 50 mg PO BID Gabapentin [Neurontin] 300 mg PO TID Pantoprazole Sodium [Protonix] 40 mg PO DAILY Diclofenac Potassium 50 mg PO BID Saline Nasal [place] [[place] Nasal [place]] 2 spray NS Q2H PRN bottle PRN Reason: Congestion Levothyroxine Sodium 112 mcg PO QAM Donepezil [Aricept] 10 mg PO HS Memantine HCl 10 mg PO BID Oxycodone HCl 15 mg PO TID PRN PRN Reason: Pain Sertraline [Zoloft] 50 mg PO DAILY Home Medications: Diclofenac Potassium 50 mg PO BID 11/06/15 [History] Gabapentin [Neurontin] 300 mg PO TID 11/06/15 [History] Metoprolol [Lopressor] 50 mg PO BID 11/06/15 [History] Nortriptyline [Pamelor] 10 mg PO HS 11/06/15 [History] Pantoprazole Sodium [Protonix] 40 mg PO DAILY 11/06/15 [History] amLODIPine [Norvasc] 5 mg PO DAILY 11/06/15 [History] Saline Nasal [place] [[place] Nasal [place]] 2 spray NS Q2H PRN bottle 08/16/17 [Rx] Levothyroxine Sodium 112 mcg PO QAM 08/19/17 [History] Donepezil [Aricept] 10 mg PO HS 11/01/18 [History] Memantine HCl 10 mg PO BID 11/01/18 [History] Oxycodone HCl 15 mg PO TID PRN 11/01/18 [History] Sertraline [Zoloft] 50 mg PO DAILY 11/01/18 [History] Allergies/Adverse Reactions: Allergy/AdvReac Type Severity Reaction Status Date / Time citalopram [From Celexa] Allergy Hallucinati Verified 11/01/18 13:16 ng hydromorphone [From Dilaudid] Allergy Hallucinati Verified 11/01/18 13:16 ng Penicillins Allergy Hives Verified 11/01/18 13:16 Date of admission: 11/01/18 17:43 Primary care physician: PCP NONE Consults: 11/01/18 18:35 Consult to Nutrition [CONS] Routine Comment: Consulting Provider: NUTRITION Reason for Dietary Consult: MST Score Discharging clinician: Esther Schmidt Anticipated date of discharge: 11/02/18 - Constitutional Vitals: Temp Pulse Resp BP Pulse Ox 99.3 F 78 18 132/96 95 11/02/18 07:20 11/02/18 07:20 11/02/18 07:20 11/02/18 07:20 11/02/18 07:20 General appearance: Present: A&O X 3 Exam: Gen.: Vitals noted. No acute distress. AAOx3 HEENT: oropharynx clear, Normocephalic, atraumatic Cardiac: RRR, no murmur, +S1/S2 Pulmonary: CTA bilaterally, no wheezes, rales or rhonchi, equal chest expansion Abdomen: soft, nontender, Bowel sounds noted, no guarding MSK: no joint swelling noted Extremities: no BLE edema, nontender calf, no cyanosis or clubbing Neuro: A&Ox3, moves all extremities, no focal deficits Psych: Appropriate mood and behavior - Patient Status Disposition: Home, Self-Care Condition: Fair Functional capacity at discharge: independent ambulation Overall status at discharge: patient is back to baseline - Discharge Instructions Instructions: Acute Respiratory Distress Syndrome (DC) Follow Up With: Santa Posada CNP [Advanced Practice Nurse] - 11/09/18 2:30 pm Additional Instructions: - Continue to use her CPAP machine -Take oxycodone pain medication only as prescribed. Discuss with pain management physician about oxycodone dose. -Follow-up with your primary care provider. - Diet and Activity Activity: resume usual activities as tolerated Diet: advance to your usual diet <Esther Schmidt - Last Filed: 11/02/18 19:17> Orders not resulted at time of discharge: Pending orders 11/01/18 15:07 Culture,Blood [BC] Stat Date of Encounter: 11/02/18 - Discharge Diagnosis (1) Acute metabolic encephalopathy Status: Acute (2) Acute respiratory failure with hypoxia Status: Acute Hospital course: Ms. Peters is a 73 year old female - Time Spent with Patient Total time spent providing and/or coordinating discharge services: Date of admission: 11/01/18 17:43 Primary care physician: PCP NONE Consults: 11/01/18 18:35 Consult to Nutrition [CONS] Routine Comment: Consulting Provider: NUTRITION Reason for Dietary Consult: MST Score - Constitutional Vitals: Temp Pulse Resp BP Pulse Ox 100.3 F H 78 18 141/85 93 11/02/18 11:40 11/02/18 11:40 11/02/18 11:40 11/02/18 11:40 11/02/18 11:40 - Attending Attestation I examined this patient and my medical decision-making was reviewed with the Resident Physician. I agree with the documented findings, disposition and treatment plan as described except to the extent set forth below.
[2018-11-02] MEDS: Ringers Solution, Lactated 1,000 ML IVC SCH (10:30)
[2018-11-02 11:44] VITALS: BP 141/85
--- NOTE | 2018-11-02 21:25 | Electrocardiograph Report ---
[address] [place], [place] [address] Test Date: 2018-11-01 Pat Name: Roxana Peters Department: [id number] Room: [facility] Gender: F Customer Service Representative Teacher: : 1945 Requested By: Navid Barba Order Number: [id number] Reading MD: Celena Norwood Measurements Intervals [place] Rate: 63 P: 36 LA: 201 QRS: 61 QRSD: 96 T: 41 QT: 415 QTc: 425 Interpretive Statements Sinus rhythm Electronically Signed On 11-02-2018 21:23:41 EDT by Celena Norwood
== END 2018-11-02 15:12 | disposition home or self-care (01) ==
LOC: EMEROOARM 13:14 → 2NNU 13:14
PROVIDERS: ADMIT Internal Medicine Nephrology; ATTEND Internal Medicine Nephrology